=== PATIENT | male | born 1995 | race Hispanic/Latino ===

== ENCOUNTER 2023-07-06 13:26 | Emergency (ER) | payer OTHER, SELFPAY ==
[2023-07-06 13:30] VITALS: BP 141/87; PULSE 89; RESP 18; TEMP 37.1; O2SAT 100; BMI 28.0
--- NOTE | 2023-07-06 13:35 | DI.RAD.S_ITS ---
PROCEDURE: XR CHEST 2V INDICATIONS: chest pain TECHNIQUE: 2 views of the chest were acquired. COMPARISON: None. FINDINGS: Surgical changes and devices: None. Lungs and pleura: Lungs are clear. No pleural effusions or pneumothorax. Mediastinum: Mediastinal contours are normal. Heart size is normal. Bones and chest wall: No suspicious bony abnormalities. Soft tissues appear unremarkable. IMPRESSION: No evidence acute pulmonary process. Dictated by: Dejan Cartagena M.D. on 07/06/2023 at 15:16 Approved by: Dejan Cartagena M.D. on 07/06/2023 at 15:19
--- NOTE | 2023-07-06 15:06 | ED.CHESTPAIN ---
HPI - Chest Pain <Dayton Alexis PA-C - Last Filed: 07/06/23 18:13> General Chief Complaint: Chest Pain Stated Complaint: Chest pain, L arm numbness Time Seen by Provider: 07/06/23 14:38 Source: patient Mode of arrival: Ambulatory History of Present Illness HPI narrative: 27-year-old male no reported past medical history presents to the ED with 5 days of substernal chest pain. Patient states that he was out on vacation, returned last week and tried to start working out after a gap of several days. Patient states that he started feeling sternal pain with some tingling that went down his left arm. Patient states that he can reproduce the pain when he pushes on his sternum. Patient denies fever, chills, shortness of breath, nausea, vomiting, lightheadedness, dizziness, syncope. Related Data Allergies Allergy/AdvReac Type Severity Reaction Status Date / Time No Known Drug Allergies Allergy Verified 07/06/23 13:29 Review of Systems <Dayton Alexis PA-C - Last Filed: 07/06/23 18:13> Review of Systems ROS Unobtainable: All systems reviewed & are unremarkable except as noted in HPI and below Constitutional Constitutional: Denies chills, Denies fatigue, Denies fever(s), Denies frequent falls, Denies lethargy and Denies weakness Eyes Eyes: Denies change in vision, Denies eye discharge, Denies irritation and Denies loss of vision ENT Ears, Nose, Mouth, and Throat: Denies change in voice, Denies dizziness, Denies neck pain, Denies sore throat and Denies throat swelling Cardiovascular Cardiovascular: Reports chest pain, Denies irregular heart rhythm, Denies lightheadedness, Denies palpitations, Denies dyspnea, Denies dyspnea on exertion and Denies orthopnea Respiratory Respiratory: Denies cough, Denies dyspnea, Denies dyspnea on exertion and Denies wheezing Gastrointestinal Gastrointestinal: Denies abdominal pain, Denies change in bowel habits, Denies diarrhea, Denies nausea and Denies vomiting Genitourinary Genitourinary: Denies hematuria, Denies flank pain, Denies urinary incontinence and Denies urinary urgency Musculoskeletal Musculoskeletal: Denies back pain, Denies muscle weakness, Denies neck pain, Denies numbness and Reports tingling Integumentary/Breasts Skin/Breast: Denies pruritus, Denies erythema, Denies rash and Denies wounds Neurologic Neurologic: Denies behavioral changes, Denies confusion, Denies dizziness, Denies frequent falls, Denies loss of vision, Denies numbness, Reports tingling and Denies weakness Psychiatric Psychiatric: Denies anxiety, Denies behavioral changes, Denies confusion, Denies depression, Denies homicidal ideation and Denies suicidal ideation Endocrine Endocrine: Denies fatigue, Denies flushing and Denies palpitations Hematologic/Lymphatic Hematologic/Lymphatic: Denies easy bruising Allergic/Immunologic Allergic/Immunologic: Denies urticaria, Denies throat swelling and Denies wheezing Patient History <Dayton Alexis PA-C - Last Filed: 07/06/23 18:13> Social History Smoking Status: Current some day smoker Smoking Status: Current some day smoker tobacco type: vaping alcohol intake frequency: holidays/special occasions only Substance Use Type: does not use Exam <Dayton Alexis PA-C - Last Filed: 07/06/23 18:13> Narrative Exam Narrative: Const General:?cooperative, healthy appearing and comfortable [facility] Head:?normal to inspection Ears:?hearing grossly normal bilaterally Nose:?external nose normal Face and sinus:?normal facial exam and sinuses nontender Mouth:?oral mucosae normal Throat:?posterior oropharynx normal Eyes General:?appearance normal, both eyes and all related structures Neck Neck:?normal visual inspection and no lymphadenopathy noted Resp Effort & Inspection:?normal respiratory effort Auscultation:?clear to auscultation bilaterally Cardio Rate:?regular rate Rhythm:?regular rhythm Chest pain is reproducible when pushing on the sternum Neuro General:?patient alert, patient awake and patient oriented x3; patient is neurovascularly intact Initial Vital Signs Initial Vital Signs: Vital Signs Temperature 98.7 F 07/06/23 13:30 Pulse Rate 89 07/06/23 13:30 Respiratory Rate 18 07/06/23 13:30 Blood Pressure 141/87 H 07/06/23 13:30 Pulse Oximetry 100 07/06/23 13:30 Oxygen Delivery Method Room Air 07/06/23 13:30 <Gem Mcallister DO - Last Filed: 07/07/23 08:23> Initial Vital Signs Initial Vital Signs: Vital Signs Temperature 98.7 F 07/06/23 13:30 Pulse Rate 89 07/06/23 13:30 Respiratory Rate 18 07/06/23 13:30 Blood Pressure 141/87 H 07/06/23 13:30 Pulse Oximetry 100 07/06/23 13:30 Oxygen Delivery Method Room Air 07/06/23 13:30 Course <Dayton Alexis PA-C - Last Filed: 07/06/23 18:13> Orders Ordered: ED Orders 07/06/23 13:35 XR chest 2V Stat EKG-12 Lead Stat Vital Signs Vital signs: Vital Signs - 8 hr 07/06/23 13:30 07/06/23 15:35 Temperature 98.7 F Pulse Rate 89 91 H Respiratory Rate 18 16 Blood Pressure 141/87 H 120/70 Pulse Oximetry 100 99 Oxygen Delivery Method Room Air Room Air <Gem Mcallister DO - Last Filed: 07/07/23 08:23> Orders Ordered: ED Orders 07/06/23 13:35 XR chest 2V Stat EKG-12 Lead Stat Vital Signs Vital signs: Vital Signs - 8 hr 07/06/23 13:30 07/06/23 15:35 Temperature 98.7 F Pulse Rate 89 91 H Respiratory Rate 18 16 Blood Pressure 141/87 H 120/70 Pulse Oximetry 100 99 Oxygen Delivery Method Room Air Room Air MDM - Chest Pain <Dayton Alexis PA-C - Last Filed: 07/06/23 18:13> Lab Data Labs: Urine Dip Bedside Urine Glucose Negative Bedside Urine Bilirubin - Negative Bedside Urine Ketone - Negative Urine Specific Marrero 1.015 Bedside Urine Occult Blood - Negative Bedside Urine pH 6.5 Bedside Urine Protein - Negative Bedside Urine Urobilinogen - Negative Bedside Urine Nitrite - Negative Bedside Urine Leukocytes - Negative Esterase MDM Narrative Medical decision making narrative: 27-year-old male no reported past medical history presents to the ED with 5 days of substernal chest pain. Obtained EKG which was normal sinus rhythm and no ST-T changes. Chest x-ray with no acute findings. UA negative for UTI. Patient's symptoms are most consistent with with a musculo skeletal etiology such as costochondritis. Recommend follow-up with PCP. Recommend follow-up with physical therapist. Recommend rest with gradual return to exercising. ED return precautions were discussed with patient. Patient verbalized understanding. Medical records reviewed: Yes <Gem Mcallister DO - Last Filed: 07/07/23 08:23> Lab Data Labs: Urine Dip Bedside Urine Glucose Negative Bedside Urine Bilirubin - Negative Bedside Urine Ketone - Negative Urine Specific Marrero 1.015 Bedside Urine Occult Blood - Negative Bedside Urine pH 6.5 Bedside Urine Protein - Negative Bedside Urine Urobilinogen - Negative Bedside Urine Nitrite - Negative Bedside Urine Leukocytes - Negative Esterase ECG Data Interpretation: Dr. Mcallister sinus rhythm rate 81 [place] interval 138 QRS [address] changes Discharge Plan Departure Patient Disposition: Home Clinical Impression: Atypical chest pain Instructions: DI for Atypical Chest Pain Activity Restrictions/Additional Instructions: You were evaluated in the ED today for chest pain. Your history and physical exam is reassuring and your symptoms are likely due to musculoskeletal etiology from working out. Please rest for the next few days, gradually increasing your exercise. Please follow-up with your PCP to get a physical therapy referral. Return to the ED if you have worsening symptoms, chest pain, shortness of breath. You may take Tylenol and ibuprofen for your symptoms. Referrals: [facility] [Primary Care Provider] - Stand Alone Forms: Patient Portal/API <Gem Mcallister DO - Last Filed: 07/07/23 08:23> Cosign ED Attending Guyature Attestation: I was immediately available in the department for consultation. Documentation has been reviewed.
[2023-07-06 15:35] VITALS: BP 120/70; PULSE 91; RESP 16; O2SAT 99
--- NOTE | 2023-07-06 15:35 | PC.NURSE ---
Pt reports that he came back from a trip to [place], went to the gym and developed midsternal and L sided chest pain while lifting weights. Endorses intermittent SOB with exertion, denies calf pain, no swelling or redness noted. Chest pain is reproducible and worse on palpation and when leaning forward. Denies diaphoresis, N/V/D. No SOB on assessment.
== END 2023-07-06 16:52 | disposition home or self-care (01) ==
PROVIDERS: Emergency Provider Student in an Organized Health Care Education/Training Program
DX: R07.89 Other chest pain (principal)
CPT/HCPCS: 71046; 81003; 93005; 99282; 99284

== ENCOUNTER 2024-06-09 13:45 | Outpatient (RCR) | payer OTHER, SELFPAY ==
--- NOTE | 2024-05-24 16:32 | PT.OIE ---
Current Diagnoses Pain in left knee (05/24/24) Pain in unspecified knee (05/24/24) Low back pain, unspecified (05/24/24) Muscle weakness (generalized) (05/24/24) Unsteadiness on feet (05/24/24) Visit Care Team Role Provider Type Wong Frias MD Attending Provider Non-Staff Family Provider Primary Care Provider Referring Provider Specialty: Internal Medicine Address: [address] [place] [address], [facility] Email: Physical Therapy Initial Evaluation PT-OP-A Visit Information Start: 05/13/24 19:46 Freq: Status: Active Protocol: Document 05/24/24 09:51 LRN (Rec: 05/24/24 10:44 LRN [id number]) Out-Patient Physical Therapy Visit Information Visit Information Visit Type Initial Evaluation Visit Start Time 09:51 Visit Stop Time 10:30 Visit Number 11/27 Evaluation Information Evaluation Date 05/24/24 Precautions Precautions Back pain, depression PT-OP-B Current Condition Start: 05/13/24 19:46 Freq: Status: Active Protocol: Document 05/24/24 09:51 LRN (Rec: 05/24/24 10:44 LRN [id number]) Current Condition History of Current Condition Onset Date Dec 2023 Current Complaints L lateral knee pain History of Current Condition L knee pain onset originally a year ago was taking onto his shoulders a pylon and putting it onto a palate x 4, sharp pain felt on the 3rd pylon. Sharp pain persisted for 3 wks before he had it looked at. He had PT at [facility] for L lateral knee and inferior patella pain and was told he might have a torn ms at the lateral knee. He improved, so he stopped PT and went on detachment and had similar onset of pain again when he kneeled onto his L knee and felt a sharp pain on the lateral side of the knee and under the patella. 2-3 months ago he was descending stairs when his leg gave out, causing him to fall down 4 steps. Pt also c/o L low back pain when bending forward. The L knee hurts if he stand or walks too long, and he has more pain ambulating on declines and flat surfaces and descending stairs. If walks too long he has pain in his posterior L knee and inferior to the patella, with pain radiating up his L low back. Has been doing previous HEP (leg ext's, LAQ and squats). Prior Treatments and Tests X-ray taken 1-2 months ago. Treatment Goals Patient/Caregiver Goals Pt goals: Improve L knee AROM. Walk on level > 10 minutes before the knee starts to hurt . Back pain rated 4/10. Eliminate L knee pain. Current Functional Impairments (Reported) Functional Limitations- ADL's Gait tolerance on level ground is 10 minutes. Limited L knee mobility. Functional Limitations- Mobility/Gait Transfer sit<>stand: Pt doesn 't weightbear on L LE with sit <>stand. Antalgic gait: Gait with L leg hip in abduction and reduced stance time/ weightbearing Personal Factors Other Personal Factors That May Effect Pt is planning on leaving the Therapy/[facility] 06/14/24, and moving to [facility] and working in similar job. Depression. PT-OP-C Subjective Start: 05/13/24 19:46 Freq: Status: Active Protocol: Document 05/24/24 09:51 LRN (Rec: 05/24/24 10:44 LRN [id number]) Patient Questionnaires Lower Extremity Functional Scale LEFS Score 34 LEFS Impairment 40 to 59% Impaired (Score 32- 47) OP-PT Pain Assessment Pain Assessment Grid Paper Pain Assessment Grid Completed Yes Location L LB/hip Pain Location Details L lateral low back/hip Intensity 4 Scale Used Numeric (0 - 10) Description Aching,Sharp L knee Pain Location Details L lateral and inferior to patella (infrapatellar tendon) Intensity 8 Scale Used Numeric (0 - 10) Description Aching,Sharp Radiating Location Radiates up to the lateral buttock and low back. Pain Aggravating Factors Activity,Walking,Bending Other Pain Aggravating Factors Declines and descending stairs . PT-OP-G Mobility & Gait Start: 05/13/24 19:46 Freq: Status: Active Protocol: Document 05/24/24 09:51 LRN (Rec: 05/24/24 10:44 LRN [id number]) OP Mobility Evaluation Bed Mobility Supine to and from Sit Independent. Transfers Sit to Stand Modified Independent. Majority of LE weightbearing on the R LE, pt uses momentum to stand. OP Gait Assessment Gait Gait Assistance Required: Independent Gait Deviations General Gait Pattern Antalgic Comments Gait Comments Pt ambs with L leg abducted with decreased L LE weightbearing and antalgic gait. Stair Climbing Evaluation Comments Stair Climbing Comments Reportedly normal stair ambulation ascending, step to step descending. PT-OP-H Neuro Start: 05/13/24 19:46 Freq: Status: Active Protocol: Document 05/24/24 09:51 LRN (Rec: 05/24/24 10:44 LRN [id number]) Sensation Evaluation Gross Sensation Dermatome Impairments L2 Comments Summary Comments Decreased sensation of L anterior upper thigh (L2 dermatome or peripheral lateral femoral cutaneous n.), and lateral lower leg tingling (L5 dermatome or peripheral superficial peroneal n.). Deep Tendon Reflex & Clonus Assessment Deep Tendon Reflex Bilateral Achilles Deep Tendon Reflex 2+ Normal Right Patellar Deep Tendon Reflex 2+ Normal Left Patellar Deep Tendon Reflex 4+ Brisk PT-OP-J Posture/Palpation/Skin Start: 05/13/24 19:46 Freq: Status: Active Protocol: Document 05/24/24 09:51 LRN (Rec: 05/24/24 10:44 LRN [id number]) Posture Evaluation Position Standing Head/C-Spine Posture Forward Head Weight Distribution Weight Shifted Right Hip Posture (L) Abducted Knee Posture (L) Genu Valgus Comments Posture Comments L shoulder high, WB L LE ~25%, Neutral spine when equal WB through legs, otherwise R ileum is high when WBing through RLE. Palpation Assessment Location L knee Palpation Location Lateral knee joint line and infrapatellar tendon Palpation Findings Edema,Muscle Guarding, Tenderness PT-OP-K Range of Motion Start: 05/13/24 19:46 Freq: Status: Active Protocol: Document 05/24/24 09:51 LRN (Rec: 05/24/24 10:44 LRN [id number]) Hip Goniometric Range of Motion Hip Left Passive Testing Position Supine Straight Leg Raise 25 Comments Not able to assess due to muscle guarding of LE. SLR limited by L knee pain. Knee Goniometric Range of Motion Knee Right Patient Position Supine Flexion Active (degrees) 130 Extension Active (degrees) 0 Comments Sitting knee active ext is 0 deg's Left Patient Position Supine Flexion Active (degrees) 93 Extension Active (degrees) 15 Comments Sitting knee active ext is 18 deg's (lacking to neutral) PT-OP-L Special Tests Start: 05/13/24 19:46 Freq: Status: Active Protocol: Document 05/24/24 09:51 LRN (Rec: 05/24/24 10:44 LRN [id number]) Special Tests Lumbar Spine Special Tests Straight Leg Raise Test Results L PSLR - 25 deg's Comments Limited by L lateral knee and inferior patellar pain. Knee Special Tests Varus- 25 Degrees Test Results + left Comments Pain onset in medial knee, but pt was very guarded during testing. Valgus- 25 Degrees Test Results + left Comments Pain onset in medial knee, but pt was very guarded during testing. Posterior Draw Test Results - left Patellar Grind Test Test Results + bilaterally Charbel Test Test Results inconclusive Comments Pt too guarded to assess accurately Anterior Draw Test Results - left PT-OP-M Strength Start: 05/13/24 19:46 Freq: Status: Active Protocol: Document 05/24/24 09:51 LRN (Rec: 05/24/24 10:44 LRN [id number]) Knee Strength Knee Manual Muscle Testing Right Comments WNL Left Flexion (S2) 3 Fair Extension (L3) 3 Fair Ankle/Foot Strength Ankle and Foot Manual Muscle Testing Right Comments All muscle groups 5/5 Left Dorsiflexion (L4) 2 Poor Plantarflexion (S1) 2+ Poor+ Inversion 2 Poor Eversion (S1) 2 Poor PT-OP-Q Treatments Start: 05/13/24 19:46 Freq: Status: Active Protocol: Document 05/24/24 09:51 LRN (Rec: 05/24/24 10:44 LRN [id number]) Therapeutic Exercises Sitting Exercises Knee AROM Sitting Exercise Name flex /ext Side left Ankle AROM Sitting Exercise Name 4 way AROM Side left Gait Training Gait Activity Gait w/cane Description SPC held on R side for normal gait patterning. Device Used SPC Level of Assistance Isabelle-SBA with cane use and gait pattern Surface Level Distance/Duration 6' Treatment Focus Normal use of SPC and gait pattern Comments Pt was not able to use correctly initially, but with training showed fair understanding of hgt set up and use of cane. Self-Care/Home Management Treatment Education Other Education Discussed results of evaluation, goals, treatment, and plan of care (POC) with pt , attendance/cx/dns policy; pt agreeable to evaluation, goals, treatment, attendance/ cx/dns policy and POC. Activities Self-Care/Home Management Activities Instructed pt to use SPC after training while at work to minimize antalgic gait deviations. PT-OP-T Assessment and Plan Start: 05/13/24 19:46 Freq: Status: Active Protocol: Document 05/24/24 09:51 LRN (Rec: 05/24/24 10:44 LRN [id number]) Physical Therapy Assessment Rehab Potential Rehabilitation Potential Good Evaluation Complexity Number of Personal Factors/Comorbidities 1-2 Number of Body Systems Impaired 4 or More Clinical Presentation at Evaluation Evolving Impairments Impairments Activity Tolerance,Balance, Edema,Gait,Pain,Posture,ROM, Sensation,Soft Tissue Mobility ,Strength,Transfers Goals Three Impairment Decreased L knee AROM 15-93 deg's (0-130 R) Bee Keeper 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 LTG Duration 3 wks-06/14/24 Two Impairment Decreased strength/walking tolerance Short Term Goal (STG) Improve strength and function with pt able to ambulate on level > 10 minutes before the knee starts to hurt. STG Duration 2 wks-06/07/24 Fci Goal (LTG) Pt will be able to walk declines and level surface for a days work to return to prior level of function. LTG Duration 3 wks-06/14/24 One Impairment Pt lacks appropriate self care HEP. Short Term Goal (STG) Pt will be educated and demonstrate ability to walk with an assistive device (SPC) with a normal gait. STG Duration 1 wk-05/31/24 Bee Keeper Goal (LTG) Pt will be independent in an effective self care HEP for hip/knee/ankle strengthening and mobility ex's. LTG Duration 3 wks-06/14/24 Assessment Summary Assessment Pt is a 28 yo male who presents with L lateral knee and inferior patellar pain of possible L3 nerve involvement in dermatome pattern, as well as soft tissue dysfunction ( swelling and inflammation). Sensory changes at the lateral hip and anterior upper thigh in peripheral lateral femoral cutaneous and superficial peroneal nerve, with a brisk L patellar reflex (L2,L3, predominately L4) and L PSLR to 25 deg's due to lateral knee pain (L3). The pt is too guarded to be able to accurately test for internal derangement of the knee and other possible dysfunctions. It is recommended that internal derangement of the L knee be ruled out through MRI imaging. Hip strength testing was deferred due to his pain and guarded nature. For gait safety, use of cane is recommended due to L LE weakness/pain and poor gait mechanics. Pt has been instructed to use a single point cane and to start ankle/ knee AROM ex and knee AROM w/ resistance if tolerated. The pt will benefit from skilled physical therapy to decrease L knee inflammation and pain, improve L knee/hip/ ankle trunk mobility and strength, and to improve balance and gait ability on level, declines and decending stairs. It is very likely the pt will need further rehabilitation therapy past his reported discharge date and once he moves from the area. Physical Therapy Plan Frequency and Duration Frequency of Treatment 2-3x/wk Duration of treatment (weeks) 3 Plan of Care Start Date 05/24/24 Plan of Care End Date 06/14/24 Therapeutic Interventions Therapeutic Interventions Aquatic Therapy Next Visit Focus/Plan Next Note Type Treatment Note Next Visit Plan Next: ROM lumbar & L ankle, check patellar alignment. When pt can tolerate, assess for internal derangement of the L knee. Review gait mechanics with SPC & with cane on stairs. Modality: US to inferior patella and lateral knee. AROM L knee and strengthening L ankle. POC: L knee rehab with possible L3, L4 neural involvement for L knee inflammation and pain, L knee/ hip/ankle trunk mobility and strength, and balance/gait on level, declines and with decending stairs.
--- NOTE | 2024-05-26 10:06 | PT.OPPOC ---
Physical, Occupational & Speech Therapy At [facility] Current Diagnoses Pain in left knee (05/30/24) Pain in unspecified knee (05/30/24) Low back pain, unspecified (05/30/24) Muscle weakness (generalized) (05/30/24) Unsteadiness on feet (05/30/24) Visit Care Team Role Provider Type Wong Frias MD Attending Provider Non-Staff Family Provider Primary Care Provider Referring Provider Specialty: Internal Medicine Address: [address] [place] [address], [facility] Email: Plan Of Care PT-OP-T Assessment and Plan Start: 05/13/24 19:46 Freq: Status: Active Protocol: Document 05/30/24 12:57 LRN (Rec: 05/26/24 14:07 LRN [id number]) Physical Therapy Assessment Goals Three Impairment Decreased L knee AROM 15-93 deg's (0-130 R) Care Home 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 LTG Duration 3 wks-06/14/24 Two Impairment Decreased strength/walking tolerance Short Term Goal (STG) Improve strength and function with pt able to ambulate on level > 10 minutes before the knee starts to hurt. STG Duration 2 wks-06/07/24 Care Home Goal (LTG) Pt will be able to walk declines and level surface for a days work to return to prior level of function. LTG Duration 3 wks-06/14/24 One Impairment Pt lacks appropriate self care HEP. Short Term Goal (STG) Pt will be educated and demonstrate ability to walk with an assistive device (SPC) with a normal gait. 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 HEP isued: ankle strengthening w/L2 TB issued. LTG Duration 3 wks-06/14/24 progressed Assessment Summary Assessment 28 yo male w/L lateral knee & inferior patellar pain of possible L3 nerve involvement in dermatome pattern, as well as soft tissue dysfunction ( swelling and inflammation) showing sensory changes at L lat hip & anterior upper thigh (peripheral lateral femoral cutaneous and superficial peroneal n.), L PSLR of 25 deg 's. Today, held provocative testing for internal derangement of the knee due to increased pain since last session. Manual gentle lumbar tx, from pressure above the knees, resulted in traction of L/S and no onset of L knee pain. Pt had a little more discomfort in the L hip after treatment. Pt posture is with excessive lordosis. Prone, L /S L2-L3 spinous processes (sp ) appears anterior and onset of knee pain with PA glide of sp L2, L3. Pt did not bring cane, but has it to use at work Physical Therapy Plan Frequency and Duration Frequency of Treatment 2-3x/wk Duration of treatment (weeks) 3 Plan of Care Start Date 05/24/24 Plan of Care End Date 06/14/24 Therapeutic Interventions Therapeutic Interventions Balance Training,Gait Training ,Home Exercise Program,Joint Mobilizations,Manual Therapy, Neuromuscular Re-education, Self-Care/Home Management,Soft Tissue Mobilization,Taping, Therapeutic Activities, Therapeutic Exercises Modalities Cold Pack/Ice Massage,Electric Stimulation,Hot Packs, Traction- Mechanical, Ultrasound Next Visit Focus/Plan Next Note Type Treatment Note Next Visit Plan Next: Pt to bring soft knee support and SPC to therapy next session. Assess ROM lumbar & L ankle, check patellar alignment. Review gait mechanics with SPC & with cane on stairs. When pt can tolerate, assess for internal derangement of the L knee. Modality: US to inferior patella and lateral knee. AROM L knee and strengthening L ankle. POC: L knee rehab with possible L3, L4 neural involvement for L knee inflammation and pain, L knee/ hip/ankle trunk mobility and strength, and balance/gait on level, declines and with decending stairs. Plan of Care Dates Plan of Care Start Date 05/24/24 Plan of Care End Date 06/14/24 Electronically Signed by: Yanelis Ramirez, PT 05/30/24 [id number] If you are in agreement with this Plan of Care, please return a signed and dated copy. I have reviewed this Plan of Care and certify that the skilled therapy services above are required to meet the patient?s needs. Physician Signature Date Printed Name and Credentials Clinical Instructor Signature Printed Name and Credentials
--- NOTE | 2024-05-26 10:06 | PT.OPPN ---
Current Diagnoses Pain in left knee (05/30/24) Pain in unspecified knee (05/30/24) Low back pain, unspecified (05/30/24) Muscle weakness (generalized) (05/30/24) Unsteadiness on feet (05/30/24) Physical Therapy Progress Note PT-OP-A Visit Information Start: 05/13/24 19:46 Freq: Status: Active Protocol: Document 05/30/24 12:57 LRN (Rec: 05/26/24 10:39 LRN [id number]) Out-Patient Physical Therapy Visit Information Visit Information Visit Type Treatment Note Visit Start Time 09:50 Visit Stop Time 10:37 Visit Number 2 Evaluation Information Evaluation Date 05/24/24 Precautions Precautions Back pain, depression PT-OP-B Current Condition Start: 05/13/24 19:46 Freq: Status: Active Protocol: Document 05/24/24 09:51 LRN (Rec: 05/24/24 10:44 LRN [id number]) Current Condition History of Current Condition Onset Date Dec 2023 Current Complaints L lateral knee pain History of Current Condition L knee pain onset originally a year ago was taking onto his shoulders a pylon and putting it onto a palate x 4, sharp pain felt on the 3rd pylon. Sharp pain persisted for 3 wks before he had it looked at. He had PT at [facility] for L lateral knee and inferior patella pain and was told he might have a torn ms at the lateral knee. He improved, so he stopped PT and went on detachment and had similar onset of pain again when he kneeled onto his L knee and felt a sharp pain on the lateral side of the knee and under the patella. 2-3 months ago he was descending stairs when his leg gave out, causing him to fall down 4 steps. Pt also c/o L low back pain when bending forward. The L knee hurts if he stand or walks too long, and he has more pain ambulating on declines and flat surfaces and descending stairs. If walks too long he has pain in his posterior L knee and inferior to the patella, with pain radiating up his L low back. Has been doing previous HEP (leg ext's, LAQ and squats). Prior Treatments and Tests X-ray taken 1-2 months ago. Treatment Goals Patient/Caregiver Goals Pt goals: Improve L knee AROM. Walk on level > 10 minutes before the knee starts to hurt . Back pain rated 4/10. Eliminate L knee pain. Current Functional Impairments (Reported) Functional Limitations- ADL's Gait tolerance on level ground is 10 minutes. Limited L knee mobility. Functional Limitations- Mobility/Gait Transfer sit<>stand: Pt doesn 't weightbear on L LE with sit <>stand. Antalgic gait: Gait with L leg hip in abduction and reduced stance time/ weightbearing Personal Factors Other Personal Factors That May Effect Pt is planning on leaving the Therapy/Recovery [place] 06/14/24, and moving to [facility] and working in similar job. Depression. PT-OP-C Subjective Start: 05/13/24 19:46 Freq: Status: Active Protocol: Document 05/30/24 12:57 LRN (Rec: 05/26/24 13:56 LRN [id number]) OP-PT Subjective Patient Comments Patient Comments Sharp pain lateral L knee. Has been a little more sore. PT-OP-G Mobility & Gait Start: 05/13/24 19:46 Freq: Status: Active Protocol: Document 05/24/24 09:51 LRN (Rec: 05/24/24 10:44 LRN [id number]) OP Mobility Evaluation Bed Mobility Supine to and from Sit Independent. Transfers Sit to Stand Modified Independent. Majority of LE weightbearing on the R LE, pt uses momentum to stand. OP Gait Assessment Gait Gait Assistance Required: Independent Gait Deviations General Gait Pattern Antalgic Comments Gait Comments Pt ambs with L leg abducted with decreased L LE weightbearing and antalgic gait. Stair Climbing Evaluation Comments Stair Climbing Comments Reportedly normal stair ambulation ascending, step to step descending. PT-OP-H Neuro Start: 05/13/24 19:46 Freq: Status: Active Protocol: Document 05/24/24 09:51 LRN (Rec: 05/24/24 10:44 LRN [id number]) Sensation Evaluation Gross Sensation Dermatome Impairments L2 Comments Summary Comments Decreased sensation of L anterior upper thigh (L2 dermatome or peripheral lateral femoral cutaneous n.), and lateral lower leg tingling (L5 dermatome or peripheral superficial peroneal n.). Deep Tendon Reflex & Clonus Assessment Deep Tendon Reflex Bilateral Achilles Deep Tendon Reflex 2+ Normal Right Patellar Deep Tendon Reflex 2+ Normal Left Patellar Deep Tendon Reflex 4+ Brisk PT-OP-J Posture/Palpation/Skin Start: 05/13/24 19:46 Freq: Status: Active Protocol: Document 05/24/24 09:51 LRN (Rec: 05/24/24 10:44 LRN [id number]) Posture Evaluation Position Standing Head/C-Spine Posture Forward Head Weight Distribution Weight Shifted Right Hip Posture (L) Abducted Knee Posture (L) Genu Valgus Comments Posture Comments L shoulder high, WB L LE ~25%, Neutral spine when equal WB through legs, otherwise R ileum is high when WBing through RLE. Palpation Assessment Location L knee Palpation Location Lateral knee joint line and infrapatellar tendon Palpation Findings Edema,Muscle Guarding, Tenderness PT-OP-K Range of Motion Start: 05/13/24 19:46 Freq: Status: Active Protocol: Document 05/30/24 10:29 AB (Rec: 05/30/24 12:42 AB [id number]) Lumbar Spine Range of Motion Lumbar Spine Active Testing Position Standing Flexion 7 Comments AROM trunk flexion finger tips 7 inches from the floor Ankle and Foot Goniometric Range of Motion Ankle and Foot Measured in Degrees Left Ankle/Foot ROM WFL No Testing Position Standing Dorsiflexion with Knee Flexed 6 Comments Great toe 2 cm from wall with knee to wall PROM body over ankle DF ( 1 cm + 3 deg) PT-OP-L Special Tests Start: 05/13/24 19:46 Freq: Status: Active Protocol: Document 05/24/24 09:51 LRN (Rec: 05/24/24 10:44 LRN [id number]) Special Tests Lumbar Spine Special Tests Straight Leg Raise Test Results L PSLR - 25 deg's Comments Limited by L lateral knee and inferior patellar pain. Knee Special Tests Varus- 25 Degrees Test Results + left Comments Pain onset in medial knee, but pt was very guarded during testing. Valgus- 25 Degrees Test Results + left Comments Pain onset in medial knee, but pt was very guarded during testing. Posterior Draw Test Results - left Patellar Grind Test Test Results + bilaterally Charbel Test Test Results inconclusive Comments Pt too guarded to assess accurately Anterior Draw Test Results - left PT-OP-M Strength Start: 05/13/24 19:46 Freq: Status: Active Protocol: Document 05/24/24 09:51 LRN (Rec: 05/24/24 10:44 LRN [id number]) Knee Strength Knee Manual Muscle Testing Right Comments WNL Left Flexion (S2) 3 Fair Extension (L3) 3 Fair Ankle/Foot Strength Ankle and Foot Manual Muscle Testing Right Comments All muscle groups 5/5 Left Dorsiflexion (L4) 2 Poor Plantarflexion (S1) 2+ Poor+ Inversion 2 Poor Eversion (S1) 2 Poor PT-OP-T Assessment and Plan Start: 05/13/24 19:46 Freq: Status: Active Protocol: Document 05/30/24 12:57 LRN (Rec: 05/26/24 14:07 LRN [id number]) Physical Therapy Assessment Goals Three Impairment Decreased L knee AROM 15-93 deg's (0-130 R) 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 LTG Duration 3 wks-06/14/24 Two Impairment Decreased strength/walking tolerance Short Term Goal (STG) Improve strength and function with pt able to ambulate on level > 10 minutes before the knee starts to hurt. STG Duration 2 wks-06/07/24 Engineer [employer] Goal (LTG) Pt will be able to walk declines and level surface for a days work to return to prior level of function. LTG Duration 3 wks-06/14/24 One Impairment Pt lacks appropriate self care HEP. Short Term Goal (STG) Pt will be educated and demonstrate ability to walk with an assistive device (SPC) with a normal gait. STG Duration 1 wk-05/31/24 Care Home Goal (LTG) Pt will be independent in an effective self care HEP for hip/knee/ankle strengthening and mobility ex's. HEP isued: ankle strengthening w/L2 TB issued. LTG Duration 3 wks-06/14/24 progressed Assessment Summary Assessment 28 yo male w/L lateral knee & inferior patellar pain of possible L3 nerve involvement in dermatome pattern, as well as soft tissue dysfunction ( swelling and inflammation) showing sensory changes at L lat hip & anterior upper thigh (peripheral lateral femoral cutaneous and superficial peroneal n.), L PSLR of 25 deg 's. Today, held provocative testing for internal derangement of the knee due to increased pain since last session. Manual gentle lumbar tx, from pressure above the knees, resulted in traction of L/S and no onset of L knee pain. Pt had a little more discomfort in the L hip after treatment. Pt posture is with excessive lordosis. Prone, L /S L2-L3 spinous processes (sp ) appears anterior and onset of knee pain with PA glide of sp L2, L3. Pt did not bring cane, but has it to use at work Physical Therapy Plan Frequency and Duration Frequency of Treatment 2-3x/wk Duration of treatment (weeks) 3 Plan of Care Start Date 05/24/24 Plan of Care End Date 06/14/24 Therapeutic Interventions Therapeutic Interventions Balance Training,Gait Training ,Home Exercise Program,Joint Mobilizations,Manual Therapy, Neuromuscular Re-education, Self-Care/Home Management,Soft Tissue Mobilization,Taping, Therapeutic Activities, Therapeutic Exercises Modalities Cold Pack/Ice Massage,Electric Stimulation,Hot Packs, Traction- Mechanical, Ultrasound Next Visit Focus/Plan Next Note Type Treatment Note Next Visit Plan Next: Pt to bring soft knee support and SPC to therapy next session. Assess ROM lumbar & L ankle, check patellar alignment. Review gait mechanics with SPC & with cane on stairs. When pt can tolerate, assess for internal derangement of the L knee. Modality: US to inferior patella and lateral knee. AROM L knee and strengthening L ankle. POC: L knee rehab with possible L3, L4 neural involvement for L knee inflammation and pain, L knee/ hip/ankle trunk mobility and strength, and balance/gait on level, declines and with decending stairs.
--- NOTE | 2024-05-26 14:16 | PT.OTN ---
Current Diagnoses Pain in left knee (05/26/24) Pain in unspecified knee (05/26/24) Low back pain, unspecified (05/26/24) Muscle weakness (generalized) (05/26/24) Unsteadiness on feet (05/26/24) Physical Therapy Treatment Note PT-OP-A Visit Information Start: 05/13/24 19:46 Freq: Status: Active Protocol: Document 05/26/24 10:06 LRN (Rec: 05/26/24 10:39 LRN [id number]) Out-Patient Physical Therapy Visit Information Visit Information Visit Type Treatment Note Visit Start Time 09:50 Visit Stop Time 10:37 Visit Number 2 Evaluation Information Evaluation Date 05/24/24 Precautions Precautions Back pain, depression PT-OP-B Current Condition Start: 05/13/24 19:46 Freq: Status: Active Protocol: Document 05/24/24 09:51 LRN (Rec: 05/24/24 10:44 LRN [id number]) Current Condition History of Current Condition Onset Date Dec 2023 Current Complaints L lateral knee pain History of Current Condition L knee pain onset originally a year ago was taking onto his shoulders a pylon and putting it onto a palate x 4, sharp pain felt on the 3rd pylon. Sharp pain persisted for 3 wks before he had it looked at. He had PT at [facility] for L lateral knee and inferior patella pain and was told he might have a torn ms at the lateral knee. He improved, so he stopped PT and went on detachment and had similar onset of pain again when he kneeled onto his L knee and felt a sharp pain on the lateral side of the knee and under the patella. 2-3 months ago he was descending stairs when his leg gave out, causing him to fall down 4 steps. Pt also c/o L low back pain when bending forward. The L knee hurts if he stand or walks too long, and he has more pain ambulating on declines and flat surfaces and descending stairs. If walks too long he has pain in his posterior L knee and inferior to the patella, with pain radiating up his L low back. Has been doing previous HEP (leg ext's, LAQ and squats). Prior Treatments and Tests X-ray taken 1-2 months ago. Treatment Goals Patient/Caregiver Goals Pt goals: Improve L knee AROM. Walk on level > 10 minutes before the knee starts to hurt . Back pain rated 4/10. Eliminate L knee pain. Current Functional Impairments (Reported) Functional Limitations- ADL's Gait tolerance on level ground is 10 minutes. Limited L knee mobility. Functional Limitations- Mobility/Gait Transfer sit<>stand: Pt doesn 't weightbear on L LE with sit <>stand. Antalgic gait: Gait with L leg hip in abduction and reduced stance time/ weightbearing Personal Factors Other Personal Factors That May Effect Pt is planning on leaving the Therapy/Recovery [place] 06/14/24, and moving to [facility] and working in similar job. Depression. PT-OP-C Subjective Start: 05/13/24 19:46 Freq: Status: Active Protocol: Document 05/26/24 10:06 LRN (Rec: 05/26/24 13:56 LRN [id number]) OP-PT Subjective Patient Comments Patient Comments Sharp pain lateral L knee. Has been a little more sore. PT-OP-G Mobility & Gait Start: 05/13/24 19:46 Freq: Status: Active Protocol: Document 05/24/24 09:51 LRN (Rec: 05/24/24 10:44 LRN [id number]) OP Mobility Evaluation Bed Mobility Supine to and from Sit Independent. Transfers Sit to Stand Modified Independent. Majority of LE weightbearing on the R LE, pt uses momentum to stand. OP Gait Assessment Gait Gait Assistance Required: Independent Gait Deviations General Gait Pattern Antalgic Comments Gait Comments Pt ambs with L leg abducted with decreased L LE weightbearing and antalgic gait. Stair Climbing Evaluation Comments Stair Climbing Comments Reportedly normal stair ambulation ascending, step to step descending. PT-OP-H Neuro Start: 05/13/24 19:46 Freq: Status: Active Protocol: Document 05/24/24 09:51 LRN (Rec: 05/24/24 10:44 LRN [id number]) Sensation Evaluation Gross Sensation Dermatome Impairments L2 Comments Summary Comments Decreased sensation of L anterior upper thigh (L2 dermatome or peripheral lateral femoral cutaneous n.), and lateral lower leg tingling (L5 dermatome or peripheral superficial peroneal n.). Deep Tendon Reflex & Clonus Assessment Deep Tendon Reflex Bilateral Achilles Deep Tendon Reflex 2+ Normal Right Patellar Deep Tendon Reflex 2+ Normal Left Patellar Deep Tendon Reflex 4+ Brisk PT-OP-J Posture/Palpation/Skin Start: 05/13/24 19:46 Freq: Status: Active Protocol: Document 05/24/24 09:51 LRN (Rec: 05/24/24 10:44 LRN [id number]) Posture Evaluation Position Standing Head/C-Spine Posture Forward Head Weight Distribution Weight Shifted Right Hip Posture (L) Abducted Knee Posture (L) Genu Valgus Comments Posture Comments L shoulder high, WB L LE ~25%, Neutral spine when equal WB through legs, otherwise R ileum is high when WBing through RLE. Palpation Assessment Location L knee Palpation Location Lateral knee joint line and infrapatellar tendon Palpation Findings Edema,Muscle Guarding, Tenderness PT-OP-K Range of Motion Start: 05/13/24 19:46 Freq: Status: Active Protocol: Document 05/24/24 09:51 LRN (Rec: 05/24/24 10:44 LR [id number]) Hip Goniometric Range of Motion Hip Left Passive Testing Position Supine Straight Leg Raise 25 Comments Not able to assess due to muscle guarding of LE. SLR limited by L knee pain. Knee Goniometric Range of Motion Knee Right Patient Position Supine Flexion Active (degrees) 130 Extension Active (degrees) 0 Comments Sitting knee active ext is 0 deg's Left Patient Position Supine Flexion Active (degrees) 93 Extension Active (degrees) 15 Comments Sitting knee active ext is 18 deg's (lacking to neutral) PT-OP-L Special Tests Start: 05/13/24 19:46 Freq: Status: Active Protocol: Document 05/24/24 09:51 LRN (Rec: 05/24/24 10:44 LRN [id number]) Special Tests Lumbar Spine Special Tests Straight Leg Raise Test Results L PSLR - 25 deg's Comments Limited by L lateral knee and inferior patellar pain. Knee Special Tests Varus- 25 Degrees Test Results + left Comments Pain onset in medial knee, but pt was very guarded during testing. Valgus- 25 Degrees Test Results + left Comments Pain onset in medial knee, but pt was very guarded during testing. Posterior Draw Test Results - left Patellar Grind Test Test Results + bilaterally Charbel Test Test Results inconclusive Comments Pt too guarded to assess accurately Anterior Draw Test Results - left PT-OP-M Strength Start: 06/28/24 19:46 Freq: Status: Active Protocol: Document 05/24/24 09:51 LRN (Rec: 05/24/24 10:44 LRN [id number]) Knee Strength Knee Manual Muscle Testing Right Comments WNL Left Flexion (S2) 3 Fair Extension (L3) 3 Fair Ankle/Foot Strength Ankle and Foot Manual Muscle Testing Right Comments All muscle groups 5/5 Left Dorsiflexion (L4) 2 Poor Plantarflexion (S1) 2+ Poor+ Inversion 2 Poor Eversion (S1) 2 Poor PT-OP-Q Treatments Start: 05/13/24 19:46 Freq: Status: Active Protocol: Document 05/26/24 10:06 LRN (Rec: 05/26/24 10:39 LRN [id number]) Therapeutic Exercises Prone Exercises APRIL Reps/Minutes 10x Comments Extra time taken for I/S of ex and proper positioning Sitting Exercises Ankle AROM Sitting Exercise Name Cued posture4 way AROM Side left Resistance Lev 2 TB Equipment Used Lev 2 TB issued for HEP Reps/Minutes Flex: 8 rep max. Ext/IV/EV- 15x each Comments Extra time taken to determine positioning and max matias Manual Therapy Treatment Consent Patient gave verbal consent for manual Yes treatment Joint Mobilizations L/S Joint L/S spine Direction PA of spinous processes (sp) Grade II Body Position Prone Reps/Duration 4' Comments Stiff & sore with PA mobs; L lateral knee pain with PA of L2, L3 sp T/S Joint T/S spine Direction PA of spinous processes Grade III Body Position Prone Reps/Duration 4' Comments Pt sore and stiff w/PA mobs Self-Care/Home Management Treatment Activities Self-Care/Home Management Activities HEP isued: ankle strengthening w/L2 TB issued. I/S in self care of proper posturing: TA tight/Tailbone tucked for PPT, wgt shifting standing. Pt wear knee support for stability with gait and to bring in cane/ support to therapy. PT-OP-T Assessment and Plan Start: 05/13/24 19:46 Freq: Status: Active Protocol: Document 05/26/24 10:06 LRN (Rec: 05/26/24 14:07 LRN [id number]) Physical Therapy Assessment Goals Three Impairment Decreased L knee AROM 15-93 deg's (0-130 R) Half-Way 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 LTG Duration 3 wks-06/14/24 Two Impairment Decreased strength/walking tolerance Short Term Goal (STG) Improve strength and function with pt able to ambulate on level > 10 minutes before the knee starts to hurt. STG Duration 2 wks-06/07/24 Half-Way Goal (LTG) Pt will be able to walk declines and level surface for a days work to return to prior level of function. LTG Duration 3 wks-06/14/24 One Impairment Pt lacks appropriate self care HEP. Short Term Goal (STG) Pt will be educated and demonstrate ability to walk with an assistive device (SPC) with a normal gait. STG Duration 1 wk-05/31/24 Employment Service Specialist Goal (LTG) Pt will be independent in an effective self care HEP for hip/knee/ankle strengthening and mobility ex's. HEP isued: ankle strengthening w/L2 TB issued. LTG Duration 3 wks-06/14/24 progressed Assessment Summary Assessment 28 yo male w/L lateral knee & inferior patellar pain of possible L3 nerve involvement in dermatome pattern, as well as soft tissue dysfunction ( swelling and inflammation) showing sensory changes at L lat hip & anterior upper thigh (peripheral lateral femoral cutaneous and superficial peroneal n.), L PSLR of 25 deg 's. Today, held provocative testing for internal derangement of the knee due to increased pain since last session. Manual gentle lumbar tx, from pressure above the knees, resulted in traction of L/S and no onset of L knee pain. Pt had a little more discomfort in the L hip after treatment. Pt posture is with excessive lordosis. Prone, L /S L2-L3 spinous processes (sp ) appears anterior and onset of knee pain with PA glide of sp L2, L3. Pt did not bring cane, but has it to use at work Physical Therapy Plan Frequency and Duration Frequency of Treatment 2-3x/wk Duration of treatment (weeks) 3 Plan of Care Start Date 05/24/24 Plan of Care End Date 06/14/24 Next Visit Focus/Plan Next Note Type Treatment Note Next Visit Plan Next: Pt to bring soft knee support and SPC to therapy next session. Assess ROM lumbar & L ankle, check patellar alignment. Review gait mechanics with SPC & with cane on stairs. When pt can tolerate, assess for internal derangement of the L knee. Modality: US to inferior patella and lateral knee. AROM L knee and strengthening L ankle. POC: L knee rehab with possible L3, L4 neural involvement for L knee inflammation and pain, L knee/ hip/ankle trunk mobility and strength, and balance/gait on level, declines and with decending stairs.
--- NOTE | 2024-05-30 12:54 | PT.OTN ---
Current Diagnoses Pain in left knee (05/30/24) Pain in unspecified knee (05/30/24) Low back pain, unspecified (05/30/24) Muscle weakness (generalized) (05/30/24) Unsteadiness on feet (05/30/24) Physical Therapy Treatment Note PT-OP-A Visit Information Start: 05/13/24 19:46 Freq: Status: Active Protocol: Document 05/30/24 10:29 AB (Rec: 05/30/24 12:39 AB [id number]) Out-Patient Physical Therapy Visit Information Visit Information Visit Type Treatment Note Visit Note Visit [email or web address] Access Code: [email or web address] Visit Start Time 10:35 Visit Stop Time 11:19 Visit Number 3 Number of CLUTCH OPERATOR Visits 1 Evaluation Information Evaluation Date 05/24/24 Precautions Precautions Back pain, depression PT-OP-B Current Condition Start: 05/13/24 19:46 Freq: Status: Active Protocol: Document 05/24/24 09:51 LRN (Rec: 05/24/24 10:44 LRN [id number]) Current Condition History of Current Condition Onset Date Dec 2023 Current Complaints L lateral knee pain History of Current Condition L knee pain onset originally a year ago was taking onto his shoulders a pylon and putting it onto a palate x 4, sharp pain felt on the 3rd pylon. Sharp pain persisted for 3 wks before he had it looked at. He had PT at [facility] for L lateral knee and inferior patella pain and was told he might have a torn ms at the lateral knee. He improved, so he stopped PT and went on detachment and had similar onset of pain again when he kneeled onto his L knee and felt a sharp pain on the lateral side of the knee and under the patella. 2-3 months ago he was descending stairs when his leg gave out, causing him to fall down 4 steps. Pt also c/o L low back pain when bending forward. The L knee hurts if he stand or walks too long, and he has more pain ambulating on declines and flat surfaces and descending stairs. If walks too long he has pain in his posterior L knee and inferior to the patella, with pain radiating up his L low back. Has been doing previous HEP (leg ext's, LAQ and squats). Prior Treatments and Tests X-ray taken 1-2 months ago. Treatment Goals Patient/Caregiver Goals Pt goals: Improve L knee AROM. Walk on level > 10 minutes before the knee starts to hurt . Back pain rated 4/10. Eliminate L knee pain. Current Functional Impairments (Reported) Functional Limitations- ADL's Gait tolerance on level ground is 10 minutes. Limited L knee mobility. Functional Limitations- Mobility/Gait Transfer sit<>stand: Pt doesn 't weightbear on L LE with sit <>stand. Antalgic gait: Gait with L leg hip in abduction and reduced stance time/ weightbearing Personal Factors Other Personal Factors That May Effect Pt is planning on leaving the Therapy/Recovery [place] 06/14/24, and moving to [place] [facility] and working in similar job. Depression. PT-OP-C Subjective Start: 05/13/24 19:46 Freq: Status: Active Protocol: Document 05/30/24 10:29 AB (Rec: 05/30/24 12:39 AB [id number]) OP-PT Subjective Patient Comments Patient Comments Patient reports he is a little better, regular flat walking and decline continue to be difficult, incline is getting better. Patient into session without SPC as was in a luna to leave work to get here. Pt ambulates with a wide CROW. AROM trunk flexion fingertips 7 inch from floor. Great toe 2 cm from wall with knee to wall PROM DF left ankle body over ankle movemetn ( 1 cm = 3 deg ) PT-OP-G Mobility & Gait Start: 05/13/24 19:46 Freq: Status: Active Protocol: Document 05/24/24 09:51 LRN (Rec: 05/24/24 10:44 LRN [id number]) OP Mobility Evaluation Bed Mobility Supine to and from Sit Independent. Transfers Sit to Stand Modified Independent. Majority of LE weightbearing on the R LE, pt uses momentum to stand. OP Gait Assessment Gait Gait Assistance Required: Independent Gait Deviations General Gait Pattern Antalgic Comments Gait Comments Pt ambs with L leg abducted with decreased L LE weightbearing and antalgic gait. Stair Climbing Evaluation Comments Stair Climbing Comments Reportedly normal stair ambulation ascending, step to step descending. PT-OP-H Neuro Start: 05/13/24 19:46 Freq: Status: Active Protocol: Document 05/24/24 09:51 LRN (Rec: 05/24/24 10:44 LRN [id number]) Sensation Evaluation Gross Sensation Dermatome Impairments L2 Comments Summary Comments Decreased sensation of L anterior upper thigh (L2 dermatome or peripheral lateral femoral cutaneous n.), and lateral lower leg tingling (L5 dermatome or peripheral superficial peroneal n.). Deep Tendon Reflex & Clonus Assessment Deep Tendon Reflex Bilateral Achilles Deep Tendon Reflex 2+ Normal Right Patellar Deep Tendon Reflex 2+ Normal Left Patellar Deep Tendon Reflex 4+ Brisk PT-OP-J Posture/Palpation/Skin Start: 05/13/24 19:46 Freq: Status: Active Protocol: Document 05/24/24 09:51 LRN (Rec: 05/24/24 10:44 LRN [id number]) Posture Evaluation Position Standing Head/C-Spine Posture Forward Head Weight Distribution Weight Shifted Right Hip Posture (L) Abducted Knee Posture (L) Genu Valgus Comments Posture Comments L shoulder high, WB L LE ~25%, Neutral spine when equal WB through legs, otherwise R ileum is high when WBing through RLE. Palpation Assessment Location L knee Palpation Location Lateral knee joint line and infrapatellar tendon Palpation Findings Edema,Muscle Guarding, Tenderness PT-OP-K Range of Motion Start: 05/13/24 19:46 Freq: Status: Active Protocol: Document 05/30/24 10:29 AB (Rec: 05/30/24 12:42 AB [id number]) Lumbar Spine Range of Motion Lumbar Spine Active Testing Position Standing Flexion 7 Comments AROM trunk flexion finger tips 7 inches from the floor Ankle and Foot Goniometric Range of Motion Ankle and Foot Left Ankle/Foot ROM WFL No Testing Position Standing Dorsiflexion with Knee Flexed 6 Comments Great toe 2 cm from wall with knee to wall PROM body over ankle DF ( 1 cm + 3 deg) PT-OP-L Special Tests Start: 05/13/24 19:46 Freq: Status: Active Protocol: Document 05/24/24 09:51 LRN (Rec: 05/24/24 10:44 LRN [id number]) Special Tests Lumbar Spine Special Tests Straight Leg Raise Test Results L PSLR - 25 deg's Comments Limited by L lateral knee and inferior patellar pain. Knee Special Tests Varus- 25 Degrees Test Results + left Comments Pain onset in medial knee, but pt was very guarded during testing. Valgus- 25 Degrees Test Results + left Comments Pain onset in medial knee, but pt was very guarded during testing. Posterior Draw Test Results - left Patellar Grind Test Test Results + bilaterally Charbel Test Test Results inconclusive Comments Pt too guarded to assess accurately Anterior Draw Test Results - left PT-OP-M Strength Start: 05/13/24 19:46 Freq: Status: Active Protocol: Document 05/24/24 09:51 LRN (Rec: 05/24/24 10:44 LRN [id number]) Knee Strength Knee Manual Muscle Testing Right Comments WNL Left Flexion (S2) 3 Fair Extension (L3) 3 Fair Ankle/Foot Strength Ankle and Foot Manual Muscle Testing Right Comments All muscle groups 5/5 Left Dorsiflexion (L4) 2 Poor Plantarflexion (S1) 2+ Poor+ Inversion 2 Poor Eversion (S1) 2 Poor PT-OP-Q Treatments Start: 05/13/24 19:46 Freq: Status: Active Protocol: Document 05/30/24 10:29 AB (Rec: 05/30/24 12:39 AB [id number]) Therapeutic Exercises Sitting Exercises AROM DF Side bilateral Reps/Minutes 15 Comments Verbal cues Standing Exercises Mini squat Standing Exercise Name with hip hinge Side bilateral Reps/Minutes 3X Comments verbal and visual cues, discontinued in favor of sit to stand calf stretches Standing Exercise Name 1. HEP standing at wall 2. on stairs Side left Reps/Minutes 60 sec each stretch, soleus and gastroc Therapeutic Activity Therapeutic Activity sit to stand Reps/Minutes X5 post training Comments Visual and verbal cues. Patient ed mechanics of sit to stand and use of self tactile cues for hip hinge Manual Therapy Treatment Consent Patient gave verbal consent for manual Yes treatment Soft Tissue Mobilization LS paraspinals Body Location bilateral LS paraspinals Mobilization Type Sustained Pressure Intensity/Depth Moderate Body Position Prone left calf Mobilization Type Cross-Friction,Rolling, Sustained Pressure Intensity/Depth Moderate Body Position Prone Comments prior to stretch PT-OP-T Assessment and Plan Start: 05/13/24 19:46 Freq: Status: Active Protocol: Document 05/30/24 10:29 AB (Rec: 05/30/24 12:39 AB [id number]) Physical Therapy Assessment Goals Three Impairment Decreased L knee AROM 15-93 deg's (0-130 R) Water Project Manager 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 LTG Duration 3 wks-06/14/24 Two Impairment Decreased strength/walking tolerance Short Term Goal (STG) Improve strength and function with pt able to ambulate on level > 10 minutes before the knee starts to hurt. STG Duration 2 wks-06/07/24 Water Project Manager Goal (LTG) Pt will be able to walk declines and level surface for a days work to return to prior level of function. LTG Duration 3 wks-06/14/24 One Impairment Pt lacks appropriate self care HEP. Short Term Goal (STG) Pt will be educated and demonstrate ability to walk with an assistive device (SPC) with a normal gait. STG Duration 1 wk-05/31/24 Mcc Goal (LTG) Pt will be independent in an effective self care HEP for hip/knee/ankle strengthening and mobility ex's. HEP isued: ankle strengthening w/L2 TB issued. LTG Duration 3 wks-06/14/24 progressed Assessment Summary Assessment Sit to stand with impoved hip hinge end of session. Patient reports decreasing pain ant tib area post increased repetitions of AROM DF seated. Physical Therapy Plan Frequency and Duration Frequency of Treatment 2-3x/wk Duration of treatment (weeks) 3 Plan of Care Start Date 05/24/24 Plan of Care End Date 06/14/24 Therapeutic Interventions Therapeutic Interventions Balance Training,Gait Training ,Home Exercise Program,Joint Mobilizations,Manual Therapy, Neuromuscular Re-education, Self-Care/Home Management,Soft Tissue Mobilization,Taping, Therapeutic Activities, Therapeutic Exercises Modalities Cold Pack/Ice Massage,Electric Stimulation,Hot Packs, Traction- Mechanical Next Visit Focus/Plan Next Note Type Treatment Note Next Visit Plan Next: Pt to bring soft knee support and SPC to therapy next session. Assess ROM lumbar rotation/sidebend & check patellar alignment. Review gait mechanics with SPC & with cane on stairs. When pt can tolerate, assess for internal derangement of the L knee. Modality: Focus on: US to inferior patella and lateral knee. AROM L knee and strengthening L ankle. POC: L knee rehab with possible L3, L4 neural involvement for L knee inflammation and pain, L knee/ hip/ankle trunk mobility and strength, and balance/gait on level, declines and with decending stairs.
--- NOTE | 2024-06-01 12:47 | PT.OTN ---
Current Diagnoses Pain in left knee (06/01/24) Pain in unspecified knee (06/01/24) Low back pain, unspecified (06/01/24) Muscle weakness (generalized) (06/01/24) Unsteadiness on feet (06/01/24) Physical Therapy Treatment Note PT-OP-A Visit Information Start: 05/13/24 19:46 Freq: Status: Active Protocol: Document 06/01/24 10:32 AB (Rec: 06/01/24 12:46 AB [id number]) Out-Patient Physical Therapy Visit Information Visit Information Visit Type Treatment Note Visit Note Visit [email or web address] Access Code: [email or web address] Visit Start Time 10:35 Visit Stop Time 11:18 Visit Number 4 Number of TRAFFIC ENGINEERING DIRECTOR Visits 2 Evaluation Information Evaluation Date 05/24/24 Precautions Precautions Back pain, depression PT-OP-B Current Condition Start: 05/13/24 19:46 Freq: Status: Active Protocol: Document 05/24/24 09:51 LRN (Rec: 05/24/24 10:44 LRN [id number]) Current Condition History of Current Condition Onset Date Dec 2023 Current Complaints L lateral knee pain History of Current Condition L knee pain onset originally a year ago was taking onto his shoulders a pylon and putting it onto a palate x 4, sharp pain felt on the 3rd pylon. Sharp pain persisted for 3 wks before he had it looked at. He had PT at [facility] for L lateral knee and inferior patella pain and was told he might have a torn ms at the lateral knee. He improved, so he stopped PT and went on detachment and had similar onset of pain again when he kneeled onto his L knee and felt a sharp pain on the lateral side of the knee and under the patella. 2-3 months ago he was descending stairs when his leg gave out, causing him to fall down 4 steps. Pt also c/o L low back pain when bending forward. The L knee hurts if he stand or walks too long, and he has more pain ambulating on declines and flat surfaces and descending stairs. If walks too long he has pain in his posterior L knee and inferior to the patella, with pain radiating up his L low back. Has been doing previous HEP (leg ext's, LAQ and squats). Prior Treatments and Tests X-ray taken 1-2 months ago. Treatment Goals Patient/Caregiver Goals Pt goals: Improve L knee AROM. Walk on level > 10 minutes before the knee starts to hurt . Back pain rated 4/10. Eliminate L knee pain. Current Functional Impairments (Reported) Functional Limitations- ADL's Gait tolerance on level ground is 10 minutes. Limited L knee mobility. Functional Limitations- Mobility/Gait Transfer sit<>stand: Pt doesn 't weightbear on L LE with sit <>stand. Antalgic gait: Gait with L leg hip in abduction and reduced stance time/ weightbearing Personal Factors Other Personal Factors That May Effect Pt is planning on leaving the Therapy/Recovery [facility] 06/14/24, and moving to [facility] and working in similar job. Depression. PT-OP-C Subjective Start: 05/13/24 19:46 Freq: Status: Active Protocol: Document 06/01/24 10:32 AB (Rec: 06/01/24 12:46 AB [id number]) OP-PT Subjective Patient Comments Patient Comments Patient rates pain 3/10 left knee start of session ambulating into session without device or brace. Patient reports pain ambulating on level surfaces persists. Patient reports he does use the SPC at work. PT-OP-G Mobility & Gait Start: 05/13/24 19:46 Freq: Status: Active Protocol: Document 05/24/24 09:51 LRN (Rec: 05/24/24 10:44 LRN [id number]) OP Mobility Evaluation Bed Mobility Supine to and from Sit Independent. Transfers Sit to Stand Modified Independent. Majority of LE weightbearing on the R LE, pt uses momentum to stand. OP Gait Assessment Gait Gait Assistance Required: Independent Gait Deviations General Gait Pattern Antalgic Comments Gait Comments Pt ambs with L leg abducted with decreased L LE weightbearing and antalgic gait. Stair Climbing Evaluation Comments Stair Climbing Comments Reportedly normal stair ambulation ascending, step to step descending. PT-OP-H Neuro Start: 05/13/24 19:46 Freq: Status: Active Protocol: Document 05/24/24 09:51 LRN (Rec: 05/24/24 10:44 LRN [id number]) Sensation Evaluation Gross Sensation Dermatome Impairments L2 Comments Summary Comments Decreased sensation of L anterior upper thigh (L2 dermatome or peripheral lateral femoral cutaneous n.), and lateral lower leg tingling (L5 dermatome or peripheral superficial peroneal n.). Deep Tendon Reflex & Clonus Assessment Deep Tendon Reflex Bilateral Achilles Deep Tendon Reflex 2+ Normal Right Patellar Deep Tendon Reflex 2+ Normal Left Patellar Deep Tendon Reflex 4+ Brisk PT-OP-J Posture/Palpation/Skin Start: 05/13/24 19:46 Freq: Status: Active Protocol: Document 05/24/24 09:51 LRN (Rec: 05/24/24 10:44 LRN [id number]) Posture Evaluation Position Standing Head/C-Spine Posture Forward Head Weight Distribution Weight Shifted Right Hip Posture (L) Abducted Knee Posture (L) Genu Valgus Comments Posture Comments L shoulder high, WB L LE ~25%, Neutral spine when equal WB through legs, otherwise R ileum is high when WBing through RLE. Palpation Assessment Location L knee Palpation Location Lateral knee joint line and infrapatellar tendon Palpation Findings Edema,Muscle Guarding, Tenderness PT-OP-K Range of Motion Start: 05/13/24 19:46 Freq: Status: Active Protocol: Document 06/01/24 10:32 AB (Rec: 06/01/24 12:46 AB [id number]) Lumbar Spine Range of Motion Lumbar Spine Active Rotation Left 40 Rotation Right 30 Comments % for ration left side bend 3.5 cm below sup pat right side bend 5 cm above sup pat PT-OP-L Special Tests Start: 05/13/24 19:46 Freq: Status: Active Protocol: Document 05/24/24 09:51 LRN (Rec: 05/24/24 10:44 LRN [id number]) Special Tests Lumbar Spine Special Tests Straight Leg Raise Test Results L PSLR - 25 deg's Comments Limited by L lateral knee and inferior patellar pain. Knee Special Tests Varus- 25 Degrees Test Results + left Comments Pain onset in medial knee, but pt was very guarded during testing. Valgus- 25 Degrees Test Results + left Comments Pain onset in medial knee, but pt was very guarded during testing. Posterior Draw Test Results - left Patellar Grind Test Test Results + bilaterally Charbel Test Test Results inconclusive Comments Pt too guarded to assess accurately Anterior Draw Test Results - left PT-OP-M Strength Start: 05/13/24 19:46 Freq: Status: Active Protocol: Document 05/24/24 09:51 LRN (Rec: 05/24/24 10:44 LRN [id number]) Knee Strength Knee Manual Muscle Testing Right Comments WNL Left Flexion (S2) 3 Fair Extension (L3) 3 Fair Ankle/Foot Strength Ankle and Foot Manual Muscle Testing Right Comments All muscle groups 5/5 Left Dorsiflexion (L4) 2 Poor Plantarflexion (S1) 2+ Poor+ Inversion 2 Poor Eversion (S1) 2 Poor PT-OP-Q Treatments Start: 05/13/24 19:46 Freq: Status: Active Protocol: Document 06/01/24 10:32 AB (Rec: 06/01/24 12:46 AB [id number]) Therapeutic Exercises Supine Exercises LTR Side bilateral Reps/Minutes one min Comments VC to perform in pain free range. Prone Exercises APRIL Reps/Minutes X10 Standing Exercises calf stretches Standing Exercise Name on step Side bilateral Reps/Minutes 60 sec gastroc and Soleus X 2 Manual Therapy Treatment Soft Tissue Mobilization LS paraspinals Body Location left LS paraspinals Mobilization Type Sustained Pressure Intensity/Depth Moderate Body Position Prone left calf Mobilization Type Cross-Friction,Rolling, Sustained Pressure Intensity/Depth Moderate Body Position Prone Comments prior to stretch PT-OP-R Modalities Start: 05/13/24 19:46 Freq: Status: Active Protocol: Document 06/01/24 10:32 AB (Rec: 06/01/24 12:46 AB [id number]) Ultrasound Therapy Treatment left knee lat and inf pat Patient Position Hooklying Frequency Setting (mHz) 3 Mode Setting Pulsed Duty Cycle 50% Intensity Setting (w/cm2) 1.5 Comments 4 min each area PT-OP-T Assessment and Plan Start: 05/13/24 19:46 Freq: Status: Active Protocol: Document 06/01/24 10:32 AB (Rec: 06/01/24 12:46 AB [id number]) Physical Therapy Assessment Goals Three Impairment Decreased L knee AROM 15-93 deg's (0-130 R) Fpc 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 06/01/2024 left patella hypomobile inferiorly and pt reports pain with sup and inf PROM, tracks laterally with quad set LTG Duration 3 wks-06/14/24 Two Impairment Decreased strength/walking tolerance Short Term Goal (STG) Improve strength and function with pt able to ambulate on level > 10 minutes before the knee starts to hurt. STG Duration 2 wks-06/07/24 Fpc Goal (LTG) Pt will be able to walk declines and level surface for a days work to return to prior level of function. LTG Duration 3 wks-06/14/24 One Impairment Pt lacks appropriate self care HEP. Short Term Goal (STG) Pt will be educated and demonstrate ability to walk with an assistive device (SPC) with a normal gait. STG Duration 1 wk-05/31/24 Sustainable Landscape Architect Goal (LTG) Pt will be independent in an effective self care HEP for hip/knee/ankle strengthening and mobility ex's. HEP isued: ankle strengthening w/L2 TB issued. LTG Duration 3 wks-06/14/24 progressed Assessment Summary Assessment Patient reports knee pain persists, ambulating out of session without device rating pain 1/10 left knee, commenting it will increase as he ambulates farther. Physical Therapy Plan Frequency and Duration Frequency of Treatment 2-3x/wk Duration of treatment (weeks) 3 Plan of Care Start Date 05/24/24 Plan of Care End Date 06/14/24 Next Visit Focus/Plan Next Note Type Treatment Note Next Visit Plan Next: Pt to bring soft knee support and SPC to therapy next session. Review gait mechanics with SPC & with cane on stairs. When pt can tolerate, assess for internal derangement of the L knee. Modality: US to inferior patella and lateral knee. AROM L knee and strengthening L ankle. POC: L knee rehab with possible L3, L4 neural involvement for L knee inflammation and pain, L knee/ hip/ankle trunk mobility and strength( next session trial mini squat/hip hinge), and balance/gait on level, declines and with decending stairs.
--- NOTE | 2024-06-03 13:36 | PT.OTN ---
Current Diagnoses Pain in left knee (06/03/24) Pain in unspecified knee (06/03/24) Low back pain, unspecified (06/03/24) Muscle weakness (generalized) (06/03/24) Unsteadiness on feet (06/03/24) Physical Therapy Treatment Note PT-OP-A Visit Information Start: 05/13/24 19:46 Freq: Status: Active Protocol: Document 06/03/24 10:38 LRN (Rec: 06/03/24 11:34 LRN [id number]) Out-Patient Physical Therapy Visit Information Visit Information Visit Type Treatment Note Visit Start Time 10:38 Visit Stop Time 11:33 Visit Number 5 Evaluation Information Evaluation Date 05/24/24 Precautions Precautions Back pain, depression PT-OP-B Current Condition Start: 05/13/24 19:46 Freq: Status: Active Protocol: Document 05/24/24 09:51 LRN (Rec: 05/24/24 10:44 LRN [id number]) Current Condition History of Current Condition Onset Date Dec 2023 Current Complaints L lateral knee pain History of Current Condition L knee pain onset originally a year ago was taking onto his shoulders a pylon and putting it onto a palate x 4, sharp pain felt on the 3rd pylon. Sharp pain persisted for 3 wks before he had it looked at. He had PT at [facility] for L lateral knee and inferior patella pain and was told he might have a torn ms at the lateral knee. He improved, so he stopped PT and went on detachment and had similar onset of pain again when he kneeled onto his L knee and felt a sharp pain on the lateral side of the knee and under the patella. 2-3 months ago he was descending stairs when his leg gave out, causing him to fall down 4 steps. Pt also c/o L low back pain when bending forward. The L knee hurts if he stand or walks too long, and he has more pain ambulating on declines and flat surfaces and descending stairs. If walks too long he has pain in his posterior L knee and inferior to the patella, with pain radiating up his L low back. Has been doing previous HEP (leg ext's, LAQ and squats). Prior Treatments and Tests X-ray taken 1-2 months ago. Treatment Goals Patient/Caregiver Goals Pt goals: Improve L knee AROM. Walk on level > 10 minutes before the knee starts to hurt . Back pain rated 4/10. Eliminate L knee pain. Current Functional Impairments (Reported) Functional Limitations- ADL's Gait tolerance on level ground is 10 minutes. Limited L knee mobility. Functional Limitations- Mobility/Gait Transfer sit<>stand: Pt doesn 't weightbear on L LE with sit <>stand. Antalgic gait: Gait with L leg hip in abduction and reduced stance time/ weightbearing Personal Factors Other Personal Factors That May Effect Pt is planning on leaving the Therapy/Recovery [place] 06/14/24, and moving to [facility] and working in similar job. Depression. PT-OP-C Subjective Start: 05/13/24 19:46 Freq: Status: Active Protocol: Document 06/03/24 10:38 LRN (Rec: 06/03/24 11:34 LRN [id number]) OP-PT Subjective Patient Comments Patient Comments L knee hurting quite a bit yesterday; therefore wearing knee brace, otherwise has been feeling better. L knee pain w/brace is 2-3/10 but w/o the brace is 5-6/10. Pain is now below the patella. Feels the US helped and was a little sore the next day. Has lower back pain, but it has been better over the past couple weeks. Leaving . Using cane at work. PT-OP-G Mobility & Gait Start: 05/13/24 19:46 Freq: Status: Active Protocol: Document 05/24/24 09:51 LRN (Rec: 05/24/24 10:44 LRN [id number]) OP Mobility Evaluation Bed Mobility Supine to and from Sit Independent. Transfers Sit to Stand Modified Independent. Majority of LE weightbearing on the R LE, pt uses momentum to stand. OP Gait Assessment Gait Gait Assistance Required: Independent Gait Deviations General Gait Pattern Antalgic Comments Gait Comments Pt ambs with L leg abducted with decreased L LE weightbearing and antalgic gait. Stair Climbing Evaluation Comments Stair Climbing Comments Reportedly normal stair ambulation ascending, step to step descending. PT-OP-H Neuro Start: 05/13/24 19:46 Freq: Status: Active Protocol: Document 05/24/24 09:51 LRN (Rec: 05/24/24 10:44 LRN [id number]) Sensation Evaluation Gross Sensation Dermatome Impairments L2 Comments Summary Comments Decreased sensation of L anterior upper thigh (L2 dermatome or peripheral lateral femoral cutaneous n.), and lateral lower leg tingling (L5 dermatome or peripheral superficial peroneal n.). Deep Tendon Reflex & Clonus Assessment Deep Tendon Reflex Bilateral Achilles Deep Tendon Reflex 2+ Normal Right Patellar Deep Tendon Reflex 2+ Normal Left Patellar Deep Tendon Reflex 4+ Brisk PT-OP-J Posture/Palpation/Skin Start: 05/13/24 19:46 Freq: Status: Active Protocol: Document 05/24/24 09:51 LRN (Rec: 05/24/24 10:44 LRN [id number]) Posture Evaluation Position Standing Head/C-Spine Posture Forward Head Weight Distribution Weight Shifted Right Hip Posture (L) Abducted Knee Posture (L) Genu Valgus Comments Posture Comments L shoulder high, WB L LE ~25%, Neutral spine when equal WB through legs, otherwise R ileum is high when WBing through RLE. Palpation Assessment Location L knee Palpation Location Lateral knee joint line and infrapatellar tendon Palpation Findings Edema,Muscle Guarding, Tenderness PT-OP-K Range of Motion Start: 05/13/24 19:46 Freq: Status: Active Protocol: Document 06/01/24 10:32 AB (Rec: 06/01/24 12:46 AB [id number]) Lumbar Spine Range of Motion Lumbar Spine Active Rotation Left 40 Rotation Right 30 Comments % for ration left side bend 3.5 cm below sup pat right side bend 5 cm above sup pat PT-OP-L Special Tests Start: 05/13/24 19:46 Freq: Status: Active Protocol: Document 06/03/24 10:38 LRN (Rec: 06/03/24 11:34 LRN [id number]) Special Tests Knee Special Tests Vibration Test Test Results + for L knee possible bony injury Comments pain at anterior tibia with large tuning fork placed anterior and anterolateral to tibia plateau. Varus- 25 Degrees Test Results - L knee Valgus- 25 Degrees Test Results - L knee Charbel Test Test Results - L knee Comments Pain at location of hand pressure. PT-OP-M Strength Start: 05/13/24 19:46 Freq: Status: Active Protocol: Document 05/24/24 09:51 LRN (Rec: 05/24/24 10:44 LRN [id number]) Knee Strength Knee Manual Muscle Testing Right Comments WNL Left Flexion (S2) 3 Fair Extension (L3) 3 Fair Ankle/Foot Strength Ankle and Foot Manual Muscle Testing Right Comments All muscle groups 5/5 Left Dorsiflexion (L4) 2 Poor Plantarflexion (S1) 2+ Poor+ Inversion 2 Poor Eversion (S1) 2 Poor PT-OP-Q Treatments Start: 05/13/24 19:46 Freq: Status: Active Protocol: Document 06/03/24 10:38 LRN (Rec: 06/03/24 11:34 LRN [id number]) Therapeutic Exercises Supine Exercises SLR Side left Reps/Minutes 10x LTR Supine Exercise Name Range ~30 deg's side to side. Side bilateral Reps/Minutes one min Comments VC to perform in pain free range. Prone Exercises APRIL Reps/Minutes X10 Sitting Exercises Ankle AROM Sitting Exercise Name Ankle DF, IV, EV Side left Reps/Minutes 5x each Comments Stretch applied for ankle IV Standing Exercises Mini squat Standing Exercise Name with hip hinge Side bilateral Reps/Minutes 10x Comments verbal and visual cues Manual Therapy Treatment Joint Mobilizations T/S Joint PA of spinous processes T10- T12 Body Position Prone Reps/Duration 3' Taping K-tape L knee Body Location L knee Treatment Focus patella tendonitis - U strip Type of Tape Kinesio Tape Skin Inspection good Comments I strip - inferior pole of patella, I strp - vertical strip for space correction/inflammation PT-OP-R Modalities Start: 05/13/24 19:46 Freq: Status: Active Protocol: Document 06/03/24 10:38 LRN (Rec: 06/03/24 11:34 LRN [id number]) Ultrasound Therapy Treatment left knee lat and inf pat Patient Position Hooklying Frequency Setting (mHz) 3 Mode Setting Pulsed Duty Cycle 50% Intensity Setting (w/cm2) 1.0 Comments 4 min each area PT-OP-T Assessment and Plan Start: 05/13/24 19:46 Freq: Status: Active Protocol: Document 06/03/24 10:38 LRN (Rec: 06/03/24 11:34 LRN [id number]) Physical Therapy Assessment Goals Three Impairment Decreased L knee AROM 15-93 deg's (0-130 R) Healthcare Prof 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 06/01/2024 left patella hypomobile inferiorly and pt reports pain with sup and inf PROM, tracks laterally with quad set LTG Duration 3 wks-06/14/24 Two Impairment Decreased strength/walking tolerance Short Term Goal (STG) Improve strength and function with pt able to ambulate on level > 10 minutes before the knee starts to hurt. STG Duration 2 wks-06/07/24 Shelter Goal (LTG) Pt will be able to walk declines and level surface for a days work to return to prior level of function. LTG Duration 3 wks-06/14/24 One Impairment Pt lacks appropriate self care HEP. Short Term Goal (STG) Pt will be educated and demonstrate ability to walk with an assistive device (SPC) with a normal gait. STG Duration 1 wk-05/31/24 Healthcare Prof Goal (LTG) Pt will be independent in an effective self care HEP for hip/knee/ankle strengthening and mobility ex's. HEP isued: ankle strengthening w/L2 TB issued. LTG Duration 3 wks-06/14/24 progressed Assessment Summary Assessment 28 yo male w/L lateral knee & inferior patellar pain of possible L3 nerve involvement in dermatome pattern, as well as soft tissue dysfunction ( inflammation). Initial L PSLR - 25 deg's, and sensory changes at L lat hip & anterior upper thigh ( peripheral lateral femoral cutaneous and superficial peroneal n.). Today, he ambs into therapy with soft knee brace on, SPC in car because brace reduces his pain to tolerable with gait (2-3/10). Pt appears to be negative for signs of internal derangement of the L knee, but is extemely sensitive at inferior patella tendon near attachment at tibia and when subjected to vibration at the tibia plateau anterolaterally or laterally; therefore indicating possible bony changes at anterior tibial plateau. Pt would benefit from MRI at L knee for soft tissue and possible hairline changes at the knee. Physical Therapy Plan Frequency and Duration Frequency of Treatment 2-3x/wk Duration of treatment (weeks) 3 Plan of Care Start Date 05/24/24 Plan of Care End Date 06/14/24 Other Referrals/Consults Referrals/Consults Recommended Recommend MRI for L knee to determine possible bony changes or soft tissue injury at L knee. Next Visit Focus/Plan Next Note Type Treatment Note Next Visit Plan Next: DC in 2 visits. Check L knee AROM and L PSLR & hip (SLR, gluts)/core strength. Review gait mechanics with SPC & with cane on stairs. HEP: L knee/hip/trunk mobility and strength, & if needed, LE neural glide. Modality: US to inferior patella and lateral knee. AROM L knee and strengthening L ankle. POC: L knee rehab with possible L3, L4 neural involvement for L knee inflammation and pain, and balance/gait on level, declines and with decending stairs.
--- NOTE | 2024-06-07 16:27 | PT.OTN ---
Current Diagnoses Pain in left knee (06/07/24) Pain in unspecified knee (06/07/24) Low back pain, unspecified (06/07/24) Muscle weakness (generalized) (06/07/24) Unsteadiness on feet (06/07/24) Physical Therapy Treatment Note PT-OP-A Visit Information Start: 05/13/24 19:46 Freq: Status: Active Protocol: Document 06/07/24 13:00 AB (Rec: 06/07/24 16:27 AB [id number]) Out-Patient Physical Therapy Visit Information Visit Information Visit Type Treatment Note Visit Start Time 13:52 Visit Stop Time 14:30 Visit Number 6 Number of FISHER TRAWL NET Visits 1 Evaluation Information Evaluation Date 05/24/24 Precautions Precautions Back pain, depression PT-OP-B Current Condition Start: 05/13/24 19:46 Freq: Status: Active Protocol: Document 05/24/24 09:51 LRN (Rec: 05/24/24 10:44 LRN [id number]) Current Condition History of Current Condition Onset Date Dec 2023 Current Complaints L lateral knee pain History of Current Condition L knee pain onset originally a year ago was taking onto his shoulders a pylon and putting it onto a palate x 4, sharp pain felt on the 3rd pylon. Sharp pain persisted for 3 wks before he had it looked at. He had PT at [facility] for L lateral knee and inferior patella pain and was told he might have a torn ms at the lateral knee. He improved, so he stopped PT and went on detachment and had similar onset of pain again when he kneeled onto his L knee and felt a sharp pain on the lateral side of the knee and under the patella. 2-3 months ago he was descending stairs when his leg gave out, causing him to fall down 4 steps. Pt also c/o L low back pain when bending forward. The L knee hurts if he stand or walks too long, and he has more pain ambulating on declines and flat surfaces and descending stairs. If walks too long he has pain in his posterior L knee and inferior to the patella, with pain radiating up his L low back. Has been doing previous HEP (leg ext's, LAQ and squats). Prior Treatments and Tests X-ray taken 1-2 months ago. Treatment Goals Patient/Caregiver Goals Pt goals: Improve L knee AROM. Walk on level > 10 minutes before the knee starts to hurt . Back pain rated 4/10. Eliminate L knee pain. Current Functional Impairments (Reported) Functional Limitations- ADL's Gait tolerance on level ground is 10 minutes. Limited L knee mobility. Functional Limitations- Mobility/Gait Transfer sit<>stand: Pt doesn 't weightbear on L LE with sit <>stand. 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 Depression. PT-OP-C Subjective Start: 05/13/24 19:46 Freq: Status: Active Protocol: Document 06/07/24 13:00 AB (Rec: 06/07/24 16:27 AB [id number]) OP-PT Subjective Patient Comments Patient Comments Patient reports the taping helped the knee, comments the low back pain is bad today, due to a lot of movement due to leaving . PROM left SLR to 41 deg when back and lat knee pain reported. 90/90 position lacking 40 deg AROM reports back pain. AROM left knee 0 to 120 deg start of session. PT-OP-G Mobility & Gait Start: 05/13/24 19:46 Freq: Status: Active Protocol: Document 05/24/24 09:51 LRN (Rec: 05/24/24 10:44 LRN [id number]) OP Mobility Evaluation Bed Mobility Supine to and from Sit Independent. Transfers Sit to Stand Modified Independent. Majority of LE weightbearing on the R LE, pt uses momentum to stand. OP Gait Assessment Gait Gait Assistance Required: Independent Gait Deviations General Gait Pattern Antalgic Comments Gait Comments Pt ambs with L leg abducted with decreased L LE weightbearing and antalgic gait. Stair Climbing Evaluation Comments Stair Climbing Comments Reportedly normal stair ambulation ascending, step to step descending. PT-OP-H Neuro Start: 05/13/24 19:46 Freq: Status: Active Protocol: Document 05/24/24 09:51 LRN (Rec: 05/24/24 10:44 LRN [id number]) Sensation Evaluation Gross Sensation Dermatome Impairments L2 Comments Summary Comments Decreased sensation of L anterior upper thigh (L2 dermatome or peripheral lateral femoral cutaneous n.), and lateral lower leg tingling (L5 dermatome or peripheral superficial peroneal n.). Deep Tendon Reflex & Clonus Assessment Deep Tendon Reflex Bilateral Achilles Deep Tendon Reflex 2+ Normal Right Patellar Deep Tendon Reflex 2+ Normal Left Patellar Deep Tendon Reflex 4+ Brisk PT-OP-J Posture/Palpation/Skin Start: 05/13/24 19:46 Freq: Status: Active Protocol: Document 05/24/24 09:51 LRN (Rec: 05/24/24 10:44 LRN [id number]) Posture Evaluation Position Standing Head/C-Spine Posture Forward Head Weight Distribution Weight Shifted Right Hip Posture (L) Abducted Knee Posture (L) Genu Valgus Comments Posture Comments L shoulder high, WB L LE ~25%, Neutral spine when equal WB through legs, otherwise R ileum is high when WBing through RLE. Palpation Assessment Location L knee Palpation Location Lateral knee joint line and infrapatellar tendon Palpation Findings Edema,Muscle Guarding, Tenderness PT-OP-K Range of Motion Start: 05/13/24 19:46 Freq: Status: Active Protocol: Document 06/01/24 10:32 AB (Rec: 06/01/24 12:46 AB [id number]) Lumbar Spine Range of Motion Lumbar Spine Active Rotation Left 40 Rotation Right 30 Comments % for ration left side bend 3.5 cm below sup pat right side bend 5 cm above sup pat PT-OP-L Special Tests Start: 05/13/24 19:46 Freq: Status: Active Protocol: Document 06/03/24 10:38 LRN (Rec: 06/03/24 11:34 LRN [id number]) Special Tests Knee Special Tests Vibration Test Test Results + for L knee possible bony injury Comments pain at anterior tibia with large tuning fork placed anterior and anterolateral to tibia plateau. Varus- 25 Degrees Test Results - L knee Valgus- 25 Degrees Test Results - L knee Charbel Test Test Results - L knee Comments Pain at location of hand pressure. PT-OP-M Strength Start: 05/13/24 19:46 Freq: Status: Active Protocol: Document 05/24/24 09:51 LRN (Rec: 05/24/24 10:44 LRN [id number]) Knee Strength Knee Manual Muscle Testing Right Comments WNL Left Flexion (S2) 3 Fair Extension (L3) 3 Fair Ankle/Foot Strength Ankle and Foot Manual Muscle Testing Right Comments All muscle groups 5/5 Left Dorsiflexion (L4) 2 Poor Plantarflexion (S1) 2+ Poor+ Inversion 2 Poor Eversion (S1) 2 Poor PT-OP-Q Treatments Start: 05/13/24 19:46 Freq: Status: Active Protocol: Document 06/07/24 13:00 AB (Rec: 06/07/24 16:27 AB [id number]) Therapeutic Exercises Supine Exercises SLR Side left Reps/Minutes 10x Gait Training Gait Activity Gait w/cane Description Stair training Device Used with rail & SPC then with SPC only Level of Assistance supervision Surface Level Distance/Duration 4 six inch stairs X 2 Treatment Focus Ascend with unaffected first descend with affected LE first step to pattern Comments Verbal cues for cane position desc>asc, for up with right knee down with left knee, then to use only cane Manual Therapy Treatment Joint Mobilizations L/S Joint L/S spine Direction PA of spinous processes (sp) Grade II Body Position Prone Reps/Duration 4' Comments Stiff & sore with PA mobs; L lateral knee pain with PA of L2, L3 sp Taping K-tape L knee Body Location L knee Treatment Focus V unload fat pad Type of Tape Kinesio Tape Skin Inspection good Comments 2 strips in V inf patella upward medially and latrally PT-OP-R Modalities Start: 05/13/24 19:46 Freq: Status: Active Protocol: Document 06/07/24 13:00 AB (Rec: 06/07/24 16:27 AB [id number]) Ultrasound Therapy Treatment left knee lat and inf pat Patient Position Hooklying Frequency Setting (mHz) 3 Mode Setting Pulsed Duty Cycle 50% Intensity Setting (w/cm2) 1.5 Comments 4 min each area PT-OP-T Assessment and Plan Start: 05/13/24 19:46 Freq: Status: Active Protocol: Document 06/07/24 13:00 AB (Rec: 06/07/24 16:27 AB [id number]) Physical Therapy Assessment Goals Three Impairment Decreased L knee AROM 15-93 deg's (0-130 R) Detention 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 06/01/2024 left patella hypomobile inferiorly and pt reports pain with sup and inf PROM, tracks laterally with quad set 06/07/2024 AROM left knee 0 to 120 deg flexion and PROM left SLR to 41 deg when back and lat knee pain reported. LTG Duration 3 wks-06/14/24 Two Impairment Decreased strength/walking tolerance Short Term Goal (STG) Improve strength and function with pt able to ambulate on level > 10 minutes before the knee starts to hurt. STG Duration 2 wks-06/07/24 Detention Goal (LTG) Pt will be able to walk declines and level surface for a days work to return to prior level of function. LTG Duration 3 wks-06/14/24 One Impairment Pt lacks appropriate self care HEP. Short Term Goal (STG) Pt will be educated and demonstrate ability to walk with an assistive device (SPC) with a normal gait. 06/07/2024 Pt demonstrates good tech ascending and desc 6 inch stairs with SPC with distant supervision favoring left LE. STG Duration 1 wk-05/31/24 Detention Goal (LTG) Pt will be independent in an effective self care HEP for hip/knee/ankle strengthening and mobility ex's. HEP isued: ankle strengthening w/L2 TB issued. LTG Duration 3 wks-06/14/24 progressed Assessment Summary Assessment Patient reports decreased knee pain ambulating with Kinesiotape. Good return demonstration for stair training with SPC, favoring left LE. Physical Therapy Plan Frequency and Duration Frequency of Treatment 2-3x/wk Duration of treatment (weeks) 3 Plan of Care Start Date 05/24/24 Plan of Care End Date 06/14/24 Next Visit Focus/Plan Next Note Type Discharge Summary Next Visit Plan Next: DC next visit, revisit goals Check L knee AROM and L PSLR & hip (SLR, gluts)/core strength. Review gait mechanics with SPC & with cane on stairs. HEP: L knee/hip /trunk mobility and strength, & if needed, LE neural glide. Modality: US to inferior patella and lateral knee. AROM L knee and strengthening L ankle. POC: L knee rehab with possible L3, L4 neural involvement for L knee inflammation and pain, and balance/gait on level, declines/outdoors if time permits
--- NOTE | 2024-06-09 16:34 | PT.OTN ---
Current Diagnoses Pain in left knee (06/09/24) Pain in unspecified knee (06/09/24) Low back pain, unspecified (06/09/24) Muscle weakness (generalized) (06/09/24) Unsteadiness on feet (06/09/24) Physical Therapy Treatment Note PT-OP-A Visit Information Start: 05/13/24 19:46 Freq: Status: Active Protocol: Document 06/09/24 13:00 AB (Rec: 06/09/24 16:33 AB [id number]) Out-Patient Physical Therapy Visit Information Visit Information Visit Type Treatment Note Visit Note Visit [email or web address] Access [email or web address]: [email or web address] Visit Start Time 13:48 Visit Stop Time 14:30 Visit Number 7 Number of FORM BUILDING SUPERVISOR Visits 2 Evaluation Information Evaluation Date 05/24/24 Precautions Precautions Back pain, depression PT-OP-B Current Condition Start: 05/13/24 19:46 Freq: Status: Active Protocol: Document 05/24/24 09:51 LRN (Rec: 05/24/24 10:44 LRN [id number]) Current Condition History of Current Condition Onset Date Dec 2023 Current Complaints L lateral knee pain History of Current Condition L knee pain onset originally a year ago was taking onto his shoulders a pylon and putting it onto a palate x 4, sharp pain felt on the 3rd pylon. Sharp pain persisted for 3 wks before he had it looked at. He had PT at [facility] for L lateral knee and inferior patella pain and was told he might have a torn ms at the lateral knee. He improved, so he stopped PT and went on detachment and had similar onset of pain again when he kneeled onto his L knee and felt a sharp pain on the lateral side of the knee and under the patella. 2-3 months ago he was descending stairs when his leg gave out, causing him to fall down 4 steps. Pt also c/o L low back pain when bending forward. The L knee hurts if he stand or walks too long, and he has more pain ambulating on declines and flat surfaces and descending stairs. If walks too long he has pain in his posterior L knee and inferior to the patella, with pain radiating up his L low back. Has been doing previous HEP (leg ext's, LAQ and squats). Prior Treatments and Tests X-ray taken 1-2 months ago. Treatment Goals Patient/Caregiver Goals Pt goals: Improve L knee AROM. Walk on level > 10 minutes before the knee starts to hurt . Back pain rated 4/10. Eliminate L knee pain. Current Functional Impairments (Reported) Functional Limitations- ADL's Gait tolerance on level ground is 10 minutes. Limited L knee mobility. Functional Limitations- Mobility/Gait Transfer sit<>stand: Pt doesn 't weightbear on L LE with sit <>stand. 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 Depression. PT-OP-C Subjective Start: 05/13/24 19:46 Freq: Status: Active Protocol: Document 06/09/24 13:00 AB (Rec: 06/09/24 16:33 AB [id number]) OP-PT Subjective Patient Comments Patient Comments Patient reports the tape definately helped. Patient reports pain with descending hills persists, uphill is no longer painful. PT-OP-G Mobility & Gait Start: 05/13/24 19:46 Freq: Status: Active Protocol: Document 05/24/24 09:51 LRN (Rec: 05/24/24 10:44 LRN [id number]) OP Mobility Evaluation Bed Mobility Supine to and from Sit Independent. Transfers Sit to Stand Modified Independent. Majority of LE weightbearing on the R LE, pt uses momentum to stand. OP Gait Assessment Gait Gait Assistance Required: Independent Gait Deviations General Gait Pattern Antalgic Comments Gait Comments Pt ambs with L leg abducted with decreased L LE weightbearing and antalgic gait. Stair Climbing Evaluation Comments Stair Climbing Comments Reportedly normal stair ambulation ascending, step to step descending. PT-OP-H Neuro Start: 05/13/24 19:46 Freq: Status: Active Protocol: Document 05/24/24 09:51 LRN (Rec: 05/24/24 10:44 LRN [id number]) Sensation Evaluation Gross Sensation Dermatome Impairments L2 Comments Summary Comments Decreased sensation of L anterior upper thigh (L2 dermatome or peripheral lateral femoral cutaneous n.), and lateral lower leg tingling (L5 dermatome or peripheral superficial peroneal n.). Deep Tendon Reflex & Clonus Assessment Deep Tendon Reflex Bilateral Achilles Deep Tendon Reflex 2+ Normal Right Patellar Deep Tendon Reflex 2+ Normal Left Patellar Deep Tendon Reflex 4+ Brisk PT-OP-J Posture/Palpation/Skin Start: 05/13/24 19:46 Freq: Status: Active Protocol: Document 05/24/24 09:51 LRN (Rec: 05/24/24 10:44 LRN [id number]) Posture Evaluation Position Standing Head/C-Spine Posture Forward Head Weight Distribution Weight Shifted Right Hip Posture (L) Abducted Knee Posture (L) Genu Valgus Comments Posture Comments L shoulder high, WB L LE ~25%, Neutral spine when equal WB through legs, otherwise R ileum is high when WBing through RLE. Palpation Assessment Location L knee Palpation Location Lateral knee joint line and infrapatellar tendon Palpation Findings Edema,Muscle Guarding, Tenderness PT-OP-K Range of Motion Start: 05/13/24 19:46 Freq: Status: Active Protocol: Document 06/01/24 10:32 AB (Rec: 06/01/24 12:46 AB [id number]) Lumbar Spine Range of Motion Lumbar Spine Active Rotation Left 40 Rotation Right 30 Comments % for ration left side bend 3.5 cm below sup pat right side bend 5 cm above sup pat PT-OP-L Special Tests Start: 05/13/24 19:46 Freq: Status: Active Protocol: Document 06/03/24 10:38 LRN (Rec: 06/03/24 11:34 LRN [id number]) Special Tests Knee Special Tests Vibration Test Test Results + for L knee possible bony injury Comments pain at anterior tibia with large tuning fork placed anterior and anterolateral to tibia plateau. Varus- 25 Degrees Test Results - L knee Valgus- 25 Degrees Test Results - L knee Charbel Test Test Results - L knee Comments Pain at location of hand pressure. PT-OP-M Strength Start: 05/13/24 19:46 Freq: Status: Active Protocol: Document 06/09/24 16:33 AB (Rec: 06/09/24 16:34 AB [id number]) Hip Strength Hip Manual Muscle Testing Left Abduction 3 Fair Knee Strength Knee Manual Muscle Testing Left Comments SLR without a quad lag left LE PT-OP-Q Treatments Start: 05/13/24 19:46 Freq: Status: Active Protocol: Document 06/09/24 13:00 AB (Rec: 06/09/24 16:33 [id number]) Therapeutic Exercises Supine Exercises seated hip abduction Side bilateral Resistance level one band Reps/Minutes one minute X 1 then 2X 15 nerve glide left LE Supine Exercise Name knee ext from hooklying with DF Side left Reps/Minutes X8 SLR Side left Reps/Minutes 10x Standing Exercises sit to stand with band Resistance level one blue band Reps/Minutes X2 for training then X 8 Comments VC for hip hinge and knee flex past 90 deg Therapeutic Activity Therapeutic Activity stair training and ambulation outdoors Name inclines, declines, grass, curb Comments Verbal cues for hip hinge on inclines and declines, cane position descending stairs and curbs Manual Therapy Treatment Taping K-tape L knee Body Location L knee Treatment Focus V unload fat pad Type of Tape Kinesio Tape Skin Inspection good Comments 2 strips in V inf patella upward medially and laterally Patient ed in technique throughout placement PT-OP-R Modalities Start: 05/13/24 19:46 Freq: Status: Active Protocol: Document 06/07/24 13:00 AB (Rec: 06/07/24 16:27 [id number]) Ultrasound Therapy Treatment left knee lat and inf pat Patient Position Hooklying Frequency Setting (mHz) 3 Mode Setting Pulsed Duty Cycle 50% Intensity Setting (w/cm2) 1.5 Comments 4 min each area PT-OP-T Assessment and Plan Start: 05/13/24 19:46 Freq: Status: Active Protocol: Document 06/09/24 13:00 AB (Rec: 06/09/24 16:33 [id number]) Physical Therapy Assessment Goals Three Impairment Decreased L knee AROM 15-93 deg's (0-130 R) Mcc 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 06/01/2024 left patella hypomobile inferiorly and pt reports pain with sup and inf PROM, tracks laterally with quad set 06/07/2024 AROM left knee 0 to 120 deg flexion and PROM left SLR to 41 deg when back and lat knee pain reported. 06/09/2024 AROM left knee 0 to 111 deg reports back pain end ROM knee flexion, PROM SLR + for back pain at 36 deg left LE LTG Duration 3 wks-06/14/24 Two Impairment Decreased strength/walking tolerance Short Term Goal (STG) Improve strength and function with pt able to ambulate on level > 10 minutes before the knee starts to hurt. 06/09/2024 Patient reports able to walk on level surface without pain 6-12 minutes 3-4 days a week. STG Duration 2 wks-06/07/24 Mcc Goal (LTG) Pt will be able to walk declines and level surface for a days work to return to prior level of function. 06/09/2024 Patient reports declines continue to increase left knee pain, but inclines are no longer painful. 06/09/2024 Patient able to perform SLR without a quad lat leftl LE LTG Duration 3 wks-06/14/24 One Impairment Pt lacks appropriate self care HEP. Short Term Goal (STG) Pt will be educated and demonstrate ability to walk with an assistive device (SPC) with a normal gait. 06/07/2024 Pt demonstrates good tech ascending and desc 6 inch stairs with SPC with distant supervision favoring left LE, unable to progress to normal gait due to left knee pain. STG Duration 1 wk-05/31/24 Culinary Manager Goal (LTG) Pt will be independent in an effective self care HEP for hip/knee/ankle strengthening and mobility ex's. HEP isued: ankle strengthening w/L2 TB issued. 06/09/2024 HEP seated hip abduction with band and band added to hip hinge sit to stand. Patient also educating in taping tech to unload fat pad peripatellar area with KT tape. LTG Duration 3 wks-06/14/24 progressed Assessment Summary Assessment Patient reports no left knee pain ambulating out of session without device level surface, attributes to kinesiotape. Patient verbalized that this will be his last session due to leaving and moving . Pro has made gains in ROM , but continues to favor left knee on stairs, curbs due to pain and left knee ROM is not yet WNL. Pt reports he can have someone apply KT tape and comments the tape decreases the left knee pain. Physical Therapy Plan Frequency and Duration Frequency of Treatment 2-3x/wk Duration of treatment (weeks) 3 Plan of Care Start Date 05/24/24 Plan of Care End Date 06/14/24
--- NOTE | 2024-08-30 17:11 | PT.OPDS ---
Current Diagnoses Pain in left knee (06/09/24) Pain in unspecified knee (06/09/24) Low back pain, unspecified (06/09/24) Muscle weakness (generalized) (06/09/24) Unsteadiness on feet (06/09/24) Visit Care Team Role Provider Type Wong Frias MD Attending Provider Non-Staff Family Provider Primary Care Provider Referring Provider Specialty: Internal Medicine Address: [address] [place] [address], [facility] Email: Visit Number Visit Number 7 Discharge Summary PT-OP-B Current Condition Start: 05/13/24 19:46 Freq: Status: Active Protocol: Document 05/24/24 09:51 LRN (Rec: 05/24/24 10:44 LRN [id number]) Current Condition History of Current Condition Onset Date Dec 2023 Current Complaints L lateral knee pain History of Current Condition L knee pain onset originally a year ago was taking onto his shoulders a pylon and putting it onto a palate x 4, sharp pain felt on the 3rd pylon. Sharp pain persisted for 3 wks before he had it looked at. He had PT at [facility] for L lateral knee and inferior patella pain and was told he might have a torn ms at the lateral knee. He improved, so he stopped PT and went on detachment and had similar onset of pain again when he kneeled onto his L knee and felt a sharp pain on the lateral side of the knee and under the patella. 2-3 months ago he was descending stairs when his leg gave out, causing him to fall down 4 steps. Pt also c/o L low back pain when bending forward. The L knee hurts if he stand or walks too long, and he has more pain ambulating on declines and flat surfaces and descending stairs. If walks too long he has pain in his posterior L knee and inferior to the patella, with pain radiating up his L low back. Has been doing previous HEP (leg ext's, LAQ and squats). Prior Treatments and Tests X-ray taken 1-2 months ago. Treatment Goals Patient/Caregiver Goals Pt goals: Improve L knee AROM. Walk on level > 10 minutes before the knee starts to hurt . Back pain rated 4/10. Eliminate L knee pain. Current Functional Impairments (Reported) Functional Limitations- ADL's Gait tolerance on level ground is 10 minutes. Limited L knee mobility. Functional Limitations- Mobility/Gait Transfer sit<>stand: Pt doesn 't weightbear on L LE with sit <>stand. Antalgic gait: Gait with L leg hip in abduction and reduced stance time/ weightbearing Personal Factors Other Personal Factors That May Effect Pt is planning on leaving the Therapy/Recovery [place] 06/14/24, and moving to [facility] and working in similar job. Depression. PT-OP-C Subjective Start: 05/13/24 19:46 Freq: Status: Active Protocol: Document 06/09/24 13:00 AB (Rec: 06/09/24 16:33 AB [id number]) OP-PT Subjective Patient Comments Patient Comments Patient reports the tape definately helped. Patient reports pain with descending hills persists, uphill is no longer painful. PT-OP-G Mobility & Gait Start: 05/13/24 19:46 Freq: Status: Active Protocol: Document 05/24/24 09:51 LRN (Rec: 05/24/24 10:44 LRN [id number]) OP Mobility Evaluation Bed Mobility Supine to and from Sit Independent. Transfers Sit to Stand Modified Independent. Majority of LE weightbearing on the R LE, pt uses momentum to stand. OP Gait Assessment Gait Gait Assistance Required: Independent Gait Deviations General Gait Pattern Antalgic Comments Gait Comments Pt ambs with L leg abducted with decreased L LE weightbearing and antalgic gait. Stair Climbing Evaluation Comments Stair Climbing Comments Reportedly normal stair ambulation ascending, step to step descending. PT-OP-H Neuro Start: 05/13/24 19:46 Freq: Status: Active Protocol: Document 05/24/24 09:51 LRN (Rec: 05/24/24 10:44 LRN [id number]) Sensation Evaluation Gross Sensation Dermatome Impairments L2 Comments Summary Comments Decreased sensation of L anterior upper thigh (L2 dermatome or peripheral lateral femoral cutaneous n.), and lateral lower leg tingling (L5 dermatome or peripheral superficial peroneal n.). Deep Tendon Reflex & Clonus Assessment Deep Tendon Reflex Bilateral Achilles Deep Tendon Reflex 2+ Normal Right Patellar Deep Tendon Reflex 2+ Normal Left Patellar Deep Tendon Reflex 4+ Brisk PT-OP-J Posture/Palpation/Skin Start: 05/13/24 19:46 Freq: Status: Active Protocol: Document 05/24/24 09:51 LRN (Rec: 05/24/24 10:44 LRN [id number]) Posture Evaluation Position Standing Head/C-Spine Posture Forward Head Weight Distribution Weight Shifted Right Hip Posture (L) Abducted Knee Posture (L) Genu Valgus Comments Posture Comments L shoulder high, WB L LE ~25%, Neutral spine when equal WB through legs, otherwise R ileum is high when WBing through RLE. Palpation Assessment Location L knee Palpation Location Lateral knee joint line and infrapatellar tendon Palpation Findings Edema,Muscle Guarding, Tenderness PT-OP-K Range of Motion Start: 05/13/24 19:46 Freq: Status: Active Protocol: Document 06/01/24 10:32 AB (Rec: 06/01/24 12:46 AB [id number]) Lumbar Spine Range of Motion Lumbar Spine Active Rotation Left 40 Rotation Right 30 Comments % for ration left side bend 3.5 cm below sup pat right side bend 5 cm above sup pat PT-OP-L Special Tests Start: 05/13/24 19:46 Freq: Status: Active Protocol: Document 06/03/24 10:38 LRN (Rec: 06/03/24 11:34 LRN [id number]) Special Tests Knee Special Tests Vibration Test Test Results + for L knee possible bony injury Comments pain at anterior tibia with large tuning fork placed anterior and anterolateral to tibia plateau. Varus- 25 Degrees Test Results - L knee Valgus- 25 Degrees Test Results - L knee Charbel Test Test Results - L knee Comments Pain at location of hand pressure. 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 06/01/2024 left patella hypomobile inferiorly and pt reports pain with sup and inf PROM, tracks laterally with quad set 06/07/2024 AROM left knee 0 to 120 deg flexion and PROM left SLR to 41 deg when back and lat knee pain reported. 06/09/2024 AROM left knee 0 to 111 deg reports back pain end ROM knee flexion, PROM SLR + for back pain at 36 deg left LE LTG Duration 3 wks-06/14/24 Two Impairment Decreased strength/walking tolerance Short Term Goal (STG) Improve strength and function with pt able to ambulate on level > 10 minutes before the knee starts to hurt. 06/09/2024 Patient reports able to walk on level surface without pain 6-12 minutes 3-4 days a week. 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 06/09/2024 Patient reports declines continue to increase left knee pain, but inclines are no longer painful. 06/09/2024 Patient able to perform SLR without a quad lat leftl LE LTG Duration 3 wks-06/14/24 GOAL NOT MET. One Impairment Pt lacks appropriate self care HEP. Short Term Goal (STG) Pt will be educated and demonstrate ability to walk with an assistive device (SPC) with a normal gait. 06/07/2024 Pt demonstrates good tech ascending and desc 6 inch stairs with SPC with distant supervision favoring left LE, unable to progress to normal gait due to left knee pain. STG Duration 1 wk-05/31/24 GOAL NOT MET Care Home Goal (LTG) Pt will be independent in an effective self care HEP for hip/knee/ankle strengthening and mobility ex's. HEP isued: ankle strengthening w/L2 TB issued. 06/09/2024 HEP seated hip abduction with band and band added to hip hinge sit to stand. Patient also educating in taping tech to unload fat pad peripatellar area with KT tape. LTG Duration 3 wks-06/14/24 progressed, GOAL MET for his current level of function. Assessment Summary Assessment 28 yo male initially evaluated with w/L lateral knee & inferior patellar pain of possible L3 nerve involvement in dermatome pattern, as well as soft tissue dysfunction ( inflammation). Pt was last seen 06/09/24 by Anali Lang, as primary PT was away on vacation and Jenae Chong DPT was overseeing pt' s therapy. On his last session day, due to leaving and moving, pt reported no left knee pain ambulating out of session without device level surface, attributed to kinesiotape. Pro had made gains in ROM, but continued to favor left knee on stairs, curbs due to pain and left knee ROM not yet WNL. Pt had reported someone could apply KT tape because it decreased the left knee pain. The pt was discharged to his [facility]. Physical Therapy Plan Discharge Physical Therapy Discharge Comments Pt leaving and moving , [place] requested. Thank you for your referral.
== END 2024-09-06 08:28 | disposition home or self-care (01) ==
LOC: PHYS 13:45
PROVIDERS: Family Provider Internal Medicine; PCP Internal Medicine; Referring Provider Internal Medicine; Visit Provider Internal Medicine
DX: M25.569 Pain in unspecified knee (principal); M62.81 Muscle weakness (generalized); M25.562 Pain in left knee; R26.81 Unsteadiness on feet; M54.50 Low back pain, unspecified
CPT/HCPCS: 97035; 97110; 97140; 97162; 97530; 97535